=== PATIENT | male | born 1960 | race Caucasian/White ===

== ENCOUNTER 2019-01-12 05:29 | Observation (INO) | payer BC, OTHER ==
[2019-01-12] VITALS (21 sets, daily range): BP systolic 100–167; BP diastolic 62–107
[~2019-01-12] VITALS: Ht 182.9 cm; Wt 106.6 kg
[~2019-01-12 05:29] MED LIST: IRBE75TA31; MULT1CAP27; ONDA4TAB11 PO
--- OUTSIDE RECORDS SUMMARY | 2019-01-12 05:34 | XMS REPORT | Continuity of Care Document ---
Author Organization Unknown Address Unknown Allergies Active Description Code Type Severity Reaction Onset Reported/Identified Relationship to Patient Clinical Status Yes No Known Drug Allergies [id number] Drug Allergy Unknown N/A 12/13/2010 Medications There is no data. Problems There is no data. Procedures There is no data. Results There is no data. Encounters ACCT No. Visit Date/Time Discharge Status Pt. Type Provider Facility Loc./Unit Complaint [id number] 09/23/2012 15:20:06 RECURRING [id number] 03/14/2016 15:41:00 03/14/2016 23:59:59 CLS Outpatient [facility] KIRAN [facility] OCC AUTO ACCIDENT
[2019-01-12] MEDS ORDERED: NITROGLYCERIN 0.4 MG SL TABS BTL 25'S SL ONE (05:37)
[2019-01-12] MEDS ORDERED: ASPIRIN 81 MG CHEW (CHILDREN'S ASA) ONE (05:37)
[2019-01-12] MEDS: NITROGLYCERIN 0.4 MG SL TABS BTL 25'S SL PRN ×3 (05:42→05:52)
[2019-01-12] MEDS ORDERED: ASPIRIN 81 MG CHEW (CHILDREN'S ASA) PO ONE (05:45)
[2019-01-12 05:49] LABS: BASOPHILS % (AUTO) 0 % (0-10); EOSINOPHILS # (AUTO) 0.1 10^3/uL (0.0-0.3); EOSINOPHILS % (AUTO) 1 % (0-10); HEMATOCRIT 42 % (40-54); HEMOGLOBIN 14.6 G/DL (13.3-17.7); LYMPHOCYTES # (AUTO) 1.7 X 10^3 (1.0-4.0); LYMPHOCYTES % (AUTO) 21 % (12-44); MEAN CORPUSCULAR HEMOGLOBIN 31 PG (25-34); MEAN CORPUSCULAR HGB CONC 35 G/DL (32-36); MEAN CORPUSCULAR VOLUME 88 FL (80-99); MEAN PLATELET VOLUME 8.8 FL (7.4-10.4); MONOCYTES # (AUTO) 0.8 X 10^3 (0.0-1.0); MONOCYTES % (AUTO) 10 % (0-12); NEUTROPHILS # (AUTO) 5.5 X 10^3 (1.8-7.8); NEUTROPHILS % (AUTO) 68 % (42-75); PLATELET COUNT 290 10^3/uL (130-400); RED CELL DISTRIBUTION WIDTH 12.9 % (10.0-14.5); WHITE BLOOD COUNT 8.1 10^3/uL (4.3-11.0)
[2019-01-12 05:55] LABS: PROTHROMBIN TIME PATIENT 13.5 SEC (12.2-14.7)
--- NOTE | 2019-01-12 05:56 | NUR ---
AFTER 3 DOSES OF NITRO SL RATES PAIN 3/10, BP 107/86.
[2019-01-12 06:03] LABS: ALANINE AMINOTRANSFERASE 29 U/L (0-55); ALBUMIN 4.6 GM/DL (3.2-4.5); ALKALINE PHOSPHATASE 126 U/L (40-136); BILIRUBIN,TOTAL 0.8 MG/DL (0.1-1.0); BUN/CREATININE RATIO 14; CALCIUM 10.4 MG/DL (8.5-10.1); CARBON DIOXIDE 22 MMOL/L (21-32); CHLORIDE 108 MMOL/L (98-107); CREATININE SERUM 0.91 MG/DL (0.60-1.30); GFR ESTIMATED > 60; GLUCOSE 114 MG/DL (70-105); MAGNESIUM 2.2 MG/DL (1.8-2.4); POTASSIUM 3.7 MMOL/L (3.6-5.0); SODIUM 143 MMOL/L (135-145); TOTAL PROTEIN 7.1 GM/DL (6.4-8.2)
--- NOTE | 2019-01-12 06:22 | ED Chest Pain ---
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 PT STATES HIS BP HAS BEEN ELEVATED RECENTLY AND YESTERDAY WAS ELEVATED ALL DAY AND DEVELOPED HEADACHE, PAIN TO BACK OF NECK AND SHOULDERS, HEARTBURN, NAUSEA, LIGHTHEADEDNESS, AND SOME SOA. PT NOTICED SWELLING TO FEET THIS WEEKEND. DENIES TAKING ASA OR NITRO CUSTOMER OPERATIONS SPECIALIST. Nursing Sepsis Screen: No Definite Risk Source: patient, family Exam Limitations: no limitations History of Present Illness Date Seen by Provider: January 12, 2019 Time Seen by Provider: 05:31 Initial Comments THIS IS A DUPLICATE CHART. SEE DR. BANKS'S CHART FOR COMPLETE DOCUMENTATION FOR THIS ENCOUNTER. This 59-year-old gentleman presents to the emergency room with chest pain that extends from the upper sternal area down to the epigastric region that woke him from sleep about 30 minutes prior to arrival. Patient has been struggling with elevated blood pressure for the past couple of weeks. He has been experiencing associated headaches. On December 2017 he experienced some nausea and vomited. Yesterday his blood pressure was escalating. He had systolic blood pressures in the 170s and 180s. He was experiencing pain up through his neck and across his shoulders. Today the pain radiated from the chest into the left arm and again was across his shoulders and in his neck. He felt shortness of breath and had heartburn associated with it as well. Yesterday he felt lightheaded. He has noted some intermittent swelling in his feet recently. He also reports having some mild shortness of breath and chest discomfort when working in the yard for the past few months. He has a remote history of smoking and quit about 2000. He has family history of coronary artery disease. His father has had a multivessel CABG. Allergies and Home Medications Allergies Coded Allergies: No Known Drug Allergies (Unverified , 12/13/10) Home Medications Amlodipine Besylate 5 Mg Tablet, 5 MG PO DAILY, (Reported) Hydrochlorothiazide 12.5 Mg Capsule, 12.5 MG PO DAILY, (Reported) Losartan Potassium 100 Mg Tablet, 100 MG PO DAILY, (Reported) Multivitamin with Minerals 1 Each Tablet, 1 TAB PO DAILY, (Reported) Patient Home Medication List Home Medication List Reviewed: Yes Review of Systems Review of Systems Constitutional: no symptoms reported EENTM: No Symptoms Reported Respiratory: See HPI Cardiovascular: No Symptoms Reported Gastrointestinal: See HPI Genitourinary: No Symptoms Reported Musculoskeletal: see HPI Skin: no symptoms reported Psychiatric/Neurological: See HPI Endocrine: No Symptoms Reported Hematologic/Lymphatic: No Symptoms Reported Past Ywqmwoy-Buairp-Wkzini Hx Past Med/Social Hx: Reviewed and Corrections made Patient Social History Recent Foreign Travel: No Contact w/Someone Who Travel: No Recent Infectious Disease Expo: No Past Medical History Surgeries: Yes Appendectomy Respiratory: No Cardiac: Yes Hypertension Neurological: No Genitourinary: No Gastrointestinal: No Musculoskeletal: No Endocrine: No HEENT: No Cancer: No Psychosocial: No Integumentary: No Family Medical History Heart Disease Physical Exam Vital Signs Vital Signs - First Documented 01/12/19 01/12/19 05:29 08:38 Temp 98.7 Pulse 77 Resp 20 B/P (MAP) 181/101 (127) Pulse Ox 97 O2 Delivery Room Air Capillary Refill : Less Than 3 Seconds Height, Weight, BMI Height: 6'0" Weight: 235lbs. oz. 106.678635vy; BMI Method:Stated General Appearance: WD/WN, Mild Distress HEENT: PERRL/EOMI, Normal ENT Inspection Neck: Normal Inspection Respiratory: Lungs Clear, Normal Breath Sounds, No Accessory Muscle Use, No Respiratory Distress, Other (anterior central chest mildly tender to palpation) Cardiovascular: Regular Rate, Rhythm, No Edema, No Murmur Gastrointestinal: Normal Bowel Sounds, Non Tender, Soft Extremity: Normal Inspection, Non Tender, No Calf Tenderness, No Pedal Edema, Other (negative Aj) Neurologic/Psychiatric: Alert, Oriented x3, No Motor/Sensory Deficits, Normal Mood/Affect, pulper tender II-XII Norm as Tested Skin: Normal Color, Warm/Dry Progress/Results/Core Measures Results/Orders Lab Results Laboratory Tests Test 01/12/19 05:35 Range/Units White Blood Count 8.1 4.3-11.0 10^3/uL Red Blood Count 4.72 4.35-5.85 10^6/uL Hemoglobin 14.6 13.3-17.7 G/DL Hematocrit 42 40-54 % Mean Corpuscular Volume 88 80-99 FL Mean Corpuscular Hemoglobin 31 25-34 PG Mean Corpuscular Hemoglobin Concent 35 32-36 G/DL Red Cell Distribution Width 12.9 10.0-14.5 % Platelet Count 290 130-400 10^3/uL Mean Platelet Volume 8.8 7.4-10.4 FL Neutrophils (%) (Auto) 68 42-75 % Lymphocytes (%) (Auto) 21 12-44 % Monocytes (%) (Auto) 10 0-12 % Eosinophils (%) (Auto) 1 0-10 % Basophils (%) (Auto) 0 0-10 % Neutrophils # (Auto) 5.5 1.8-7.8 X 10^3 Lymphocytes # (Auto) 1.7 1.0-4.0 X 10^3 Monocytes # (Auto) 0.8 0.0-1.0 X 10^3 Eosinophils # (Auto) 0.1 0.0-0.3 10^3/uL Basophils # (Auto) 0.0 0.0-0.1 10^3/uL Prothrombin Time 13.5 12.2-14.7 SEC INR Comment 1.0 0.8-1.4 Activated Partial Thromboplast Time 34 24-35 SEC Sodium Level 143 135-145 MMOL/L Potassium Level 3.7 3.6-5.0 MMOL/L Chloride Level 108 H 98-107 MMOL/L Carbon Dioxide Level 22 21-32 MMOL/L Anion Gap 13 5-14 MMOL/L Blood Urea Nitrogen 13 7-18 MG/DL Creatinine 0.91 0.60-1.30 MG/DL Estimat Glomerular Filtration Rate > 60 BUN/Creatinine Ratio 14 Glucose Level 114 H 70-105 MG/DL Calcium Level 10.4 H 8.5-10.1 MG/DL Corrected Calcium 8.5-10.1 MG/DL Magnesium Level 2.2 1.8-2.4 MG/DL Total Bilirubin 0.8 0.1-1.0 MG/DL Aspartate Amino Transf (AST/SGOT) 18 5-34 U/L Alanine Aminotransferase (ALT/SGPT) 29 0-55 U/L Alkaline Phosphatase 126 40-136 U/L Myoglobin 40.7 10.0-92.0 NG/ML Troponin I < 0.028 <0.028 NG/ML Total Protein 7.1 6.4-8.2 GM/DL Albumin 4.6 H 3.2-4.5 GM/DL My Orders Ernesto - CHATO BAIG MD Cbc With Automated Diff (01/12/19 05:40) Magnesium (01/12/19 05:40) Chest 1 View, Ap/Pa Only (01/12/19 05:40) Ekg Tracing (01/12/19 05:40) Cardiac Profile 1 (01/12/19 05:40) Comprehensive Metabolic Panel (01/12/19 05:40) Myoglobin Serum (01/12/19 05:40) Protime With Inr (01/12/19 05:40) Partial Thromboplastin Time (01/12/19 05:40) O2 (01/12/19 05:40) Monitor-Rhythm Ecg Trace Only (01/12/19 05:40) Ed Iv/Invasive Line Start (01/12/19 05:40) Nitroglycerin 0.4 Mg Btl 25's (Nitrostat (01/12/19 05:45) Aspirin Chewable Tablet (Baby Aspirin Ch (01/12/19 05:45) Nitroglycerin 0.4 Mg Btl 25's (Nitrostat (01/12/19 05:37) Aspirin Chewable Tablet (Baby Aspirin Ch (01/12/19 05:37) Ct Angio Chest W (01/12/19 06:01) Vital Signs/I&O 01/12/19 01/12/19 01/12/19 01/12/19 05:29 05:29 08:38 10:14 Temp 98.7 Pulse 77 69 71 Resp 20 18 18 B/P (MAP) 181/101 (127) 167/103 (124) 157/94 (115) Pulse Ox 97 95 O2 Delivery Room Air Room Air 01/12/19 11:13 Pulse 66 Resp 18 B/P (MAP) 136/92 (107) Pulse Ox 95 O2 Delivery Room Air Blood Pressure Mean: 127 Progress Progress Note : Time: 06:21 Progress Note Patient was seen and examined upon arrival. EKG was unremarkable. Aspirin and nitroglycerin were administered. After 3 doses of nitroglycerin, blood pressure was significantly improved. Pain decreased from 6/10 down to 3/10. Because of the nature of his pain and progression of pain, CT angiogram was felt appropriate to rule out aortic pathology. CT is pending. Care of this patient is being transferred to Dr. Banks at this time. Bedside checkout was performed. Initial ECG Impression Date: January 12, 2019 Initial ECG Impression Time: 05:30 Initial ECG Rate: 78 Initial ECG Rhythm: Normal Sinus Initial ECG Intervals: Normal Initial ECG Impression: Normal Comment Normal sinus rhythm with no ST elevation or depression. No abnormal intervals or axis deviation. Departure Impression Primary Impression: Chest pain Qualified Codes: R07.9 - Chest pain, unspecified Disposition: ADMITTED INPATIENT Condition: Improved Admissions Decision to Admit Reason: Admit from ER (General) Decision to Admit/Date: January 12, 2019 Time/Decision to Admit Time: 07:56 Departure-Patient Inst. Referrals: DAVI HELLER MD (PCP/Family) Primary Care Physician CHATO BAIG MD January 12, 2019 06:22
--- NOTE | 2019-01-12 06:26 | ED Chest Pain ---
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 PT STATES HIS BP HAS BEEN ELEVATED RECENTLY AND YESTERDAY WAS ELEVATED ALL DAY AND DEVELOPED HEADACHE, PAIN TO BACK OF NECK AND SHOULDERS, HEARTBURN, NAUSEA, LIGHTHEADEDNESS, AND SOME SOA. PT NOTICED SWELLING TO FEET THIS WEEKEND. DENIES TAKING ASA OR NITRO KINDERGARTEN INSTRUCTIONAL ASSISTANT. Nursing Sepsis Screen: No Definite Risk Source: patient Exam Limitations: no limitations History of Present Illness Date Seen by Provider: January 12, 2019 Time Seen by Provider: 05:56 Initial Comments Patient presents the ER from home with chief complaint of chest pain radiating to his neck left greater than right along with an occipital headache and radiating into his left shoulder. He said it was quite short this morning about 6 out of 10 at the worst and improved significantly after 3 doses of nitroglycerin here in the ER. He's noted for the past few weeks that has not felt well had some vomiting and chest pain Thursday 2 days ago so he stayed home from work he had a bug that everybody else in the office had. He has also noticed in the last several months he has become easily winded on exertion with chest discomfort stop and catch his breath. He stopped smoking decades ago. He is not diabetic as not have a history of high cholesterol but does take HCTZ, losartan, amlodipine. He does not have any known history of cardiac disease but has never had any screening. His father has had 5 bypasses and diabetes. Allergies and Home Medications Allergies Coded Allergies: No Known Drug Allergies (Unverified , 12/13/10) Home Medications Ondansetron 4 Mg Tab.rapdis, 4 MG PO Q6H PRN Prescribed by: CONSTANZA MCDANIEL on 12/14/10 0036 Patient Home Medication List Home Medication List Reviewed: Yes Review of Systems Review of Systems Constitutional: No chills, No diaphoresis EENTM: No Blurred Vision, No Double Vision Respiratory: Denies Cough; Shortness of Air Cardiovascular: See HPI, Chest Pain, Edema; Denies Palpitations, Denies Syncope Gastrointestinal: Denies Constipated, Denies Diarrhea, Denies Nausea Genitourinary: Denies Burning, Denies Discharge Musculoskeletal: No back pain, No joint pain Past Fwqeqow-Dobmcr-Rhxrnz Hx Patient Social History Alcohol Use: Occasionally Uses Recreational Drug Use: No Smoking Status: Former Smoker Recent Foreign Travel: No Contact w/Someone Who Travel: No Recent Infectious Disease Expo: No Physical Exam Vital Signs Vital Signs - First Documented 01/12/19 05:29 Temp 98.7 Pulse 77 Resp 20 B/P (MAP) 181/101 (127) O2 Delivery Room Air Capillary Refill : Less Than 3 Seconds Height, Weight, BMI Height: 6'0" Weight: 235lbs. oz. 106.887419dr; BMI Method:Stated General Appearance: WD/WN, Anxious, Mild Distress HEENT: PERRL/EOMI, Pharynx Normal, Moist Mucous Membranes Neck: Normal Inspection, Non Tender Respiratory: Chest Non Tender, Lungs Clear, Normal Breath Sounds, No Accessory Muscle Use, No Respiratory Distress Cardiovascular: Regular Rate, Rhythm, No Edema, Normal Peripheral Pulses Gastrointestinal: Normal Bowel Sounds, Non Tender, Soft Extremity: Normal Capillary Refill, Normal Inspection, No Pedal Edema Neurologic/Psychiatric: Alert, Oriented x3, No Motor/Sensory Deficits Skin: Normal Color, Warm/Dry Progress/Results/Core Measures Results/Orders Lab Results Laboratory Tests Test 01/12/19 05:35 Range/Units White Blood Count 8.1 4.3-11.0 10^3/uL Red Blood Count 4.72 4.35-5.85 10^6/uL Hemoglobin 14.6 13.3-17.7 G/DL Hematocrit 42 40-54 % Mean Corpuscular Volume 88 80-99 FL Mean Corpuscular Hemoglobin 31 25-34 PG Mean Corpuscular Hemoglobin Concent 35 32-36 G/DL Red Cell Distribution Width 12.9 10.0-14.5 % Platelet Count 290 130-400 10^3/uL Mean Platelet Volume 8.8 7.4-10.4 FL Neutrophils (%) (Auto) 68 42-75 % Lymphocytes (%) (Auto) 21 12-44 % Monocytes (%) (Auto) 10 0-12 % Eosinophils (%) (Auto) 1 0-10 % Basophils (%) (Auto) 0 0-10 % Neutrophils # (Auto) 5.5 1.8-7.8 X 10^3 Lymphocytes # (Auto) 1.7 1.0-4.0 X 10^3 Monocytes # (Auto) 0.8 0.0-1.0 X 10^3 Eosinophils # (Auto) 0.1 0.0-0.3 10^3/uL Basophils # (Auto) 0.0 0.0-0.1 10^3/uL Prothrombin Time 13.5 12.2-14.7 SEC INR Comment 1.0 0.8-1.4 Activated Partial Thromboplast Time 34 24-35 SEC Sodium Level 143 135-145 MMOL/L Potassium Level 3.7 3.6-5.0 MMOL/L Chloride Level 108 H 98-107 MMOL/L Carbon Dioxide Level 22 21-32 MMOL/L Anion Gap 13 5-14 MMOL/L Blood Urea Nitrogen 13 7-18 MG/DL Creatinine 0.91 0.60-1.30 MG/DL Estimat Glomerular Filtration Rate > 60 BUN/Creatinine Ratio 14 Glucose Level 114 H 70-105 MG/DL Calcium Level 10.4 H 8.5-10.1 MG/DL Corrected Calcium 8.5-10.1 MG/DL Magnesium Level 2.2 1.8-2.4 MG/DL Total Bilirubin 0.8 0.1-1.0 MG/DL Aspartate Amino Transf (AST/SGOT) 18 5-34 U/L Alanine Aminotransferase (ALT/SGPT) 29 0-55 U/L Alkaline Phosphatase 126 40-136 U/L Myoglobin 40.7 10.0-92.0 NG/ML Troponin I < 0.028 <0.028 NG/ML Total Protein 7.1 6.4-8.2 GM/DL Albumin 4.6 H 3.2-4.5 GM/DL My Orders Orders - DEANNE TABARES Morphine Injection (Morphine Injection (01/12/19 06:40) Ondansetron Injection (Zofran Injectio (01/12/19 06:45) Morphine Injection (Morphine Injection (01/12/19 07:42) Medications Given in ED Current Medications Medications Dose Ordered Sig/Tacho Route Start Time Stop Time Status Last Admin Dose Admin Aspirin 324 mg ONCE ONCE PO 01/12/19 05:45 01/12/19 05:46 DC 01/12/19 05:41 324 MG Nitroglycerin 0.4 mg UD PRN SL 01/12/19 05:45 01/12/19 06:32 DC 01/12/19 05:52 0.4 MG Ondansetron HCl 4 mg ONCE ONCE IVP 01/12/19 06:45 01/12/19 06:46 DC 01/12/19 06:47 4 MG Vital Signs/I&O 01/12/19 01/12/19 05:29 05:29 Temp 98.7 Pulse 77 Resp 20 B/P (MAP) 181/101 (127) O2 Delivery Room Air Blood Pressure Mean: 127 Progress Progress Note : Time: 06:27 Progress Note Patient was received at shift change and previous provider also started the note on the patient. I agree with his documented history. Plan was put in place to get a CT angiogram and pursue possible thoracic aortic aneurysm versus coronary. Patient's symptoms have improved significantly after 3 doses of nitroglycerin. ED ACS 19 weeks. Not low risk. This patient is not a candidate for early discharge and should receive a standard chest pain evaluation with delayed troponin testing. Initial ECG Impression Date: January 12, 2019 Initial ECG Impression Time: 05:30 Initial ECG Rate: 78 Initial ECG Rhythm: Normal Sinus Initial ECG Intervals: Normal Initial ECG Impression: Normal Initial ECG Comparisson: No Previous ECG Available Comment No acute ST elevation or depression. Diagnostic Imaging Diagonstic Imaging: Xray Plain Films/CT/US/NM/MRI: chest (1v) Comments 1 view chest normal cardiac shadow without acute pulmonary process. [facility] [place] NAME: CONSTANZA VASQUEZ [facility] REC#: [id number] PT STATUS: REG ER : 1960 PHYSICIAN: CHATO BAIG MD ADMIT DATE: 01/12/19/ER Draft Date of Exam:01/12/19 CHEST 1 VIEW, AP/PA ONLY INDICATION: Chest pain and blood pressure elevated COMPARISONS: None FINDINGS: Single view of the chest shows normal heart, pleura and diaphragms. There is mild central venous congestion accentuated by the portable technique and low lung volumes. There is a minimal basilar atelectatic infiltrates but no significant consolidations. There is no effusion or pneumothorax. Soft tissues and bony thorax are normal. IMPRESSION: Mild central venous congestion with some minimal basilar atelectatic infiltrates but no consolidations. Dictated on workstation # [id number] Dict: 01/12/19 0654 Trans: 01/12/19 0709 [id number] [id number] Interpreted by: CANDACE LEE MD Electronically signed by: Reviewed: Reviewed by Me Diagonstic Imaging: CT (angiogram) Plain Films/CT/US/NM/MRI: chest Comments NAME: CONSTANZA VASQUEZ [facility] REC#: [id number] PT STATUS: REG ER : 1960 PHYSICIAN: CHATO BAIG MD ADMIT DATE: 01/12/19/ER Draft Date of Exam:01/12/19 CT ANGIO CHEST W PROCEDURE: CT angiography of the chest with contrast. TECHNIQUE: Multiple contiguous axial images were obtained through the chest after uneventful bolus administration of intravenous contrast. 2D reconstructed CTA MIP acquisitions were also performed. Auto Exposure Controls were utilized during the CT exam to meet ALARA standards for radiation dose reduction. INDICATION: Chest pain. FINDINGS: There is good opacification of pulmonary arteries without intraluminal filling defect. Thoracic aorta has a normal appearance. There is no evidence of pathologic adenopathy in the chest. No significant pleural or pericardial fluid is identified. No acute osseous abnormality is identified. IMPRESSION: No CTA evidence of pulmonary embolism or other acute abnormality in the chest. Dictated on workstation # [id number] Dict: 01/12/19 0749 Trans: 01/12/19 0752 [id number] Interpreted by: ARTUR WALKER MD Electronically signed by: Reviewed: Reviewed by Me Departure Communication (Admissions) Time/Spoke to Admitting Phy: 07:50 Discussed the case lab EKG imaging with Dr. Penny and he agrees to accept the patient was on service. Allow the patient eat. Impression Primary Impression: Chest pain Qualified Codes: R07.9 - Chest pain, unspecified Disposition: ADMITTED INPATIENT Condition: Stable Admissions Decision to Admit Reason: Admit from ER (General) Decision to Admit/Date: January 12, 2019 Time/Decision to Admit Time: 07:56 Departure-Patient Inst. Referrals: DAVI HELLER MD (PCP/Family) Primary Care Physician Copy Copies To 1: DAVI HELLER MD, TITUS J January 12, 2019 06:26
[2019-01-12] MEDS ORDERED: morphine INJ 10 MG/ML 1ML (SYR OR VIAL) IVP STA ×2 (06:40→07:42)
[2019-01-12] MEDS ORDERED: ONDANSETRON 4 MG/2 ML (SDV) Z0FRAN IVP ONE (06:45)
--- NOTE | 2019-01-12 07:10 | Diagnostic Imaging Report ---
INDICATION: Chest pain and blood pressure elevated COMPARISONS: None FINDINGS: Single view of the chest shows normal heart, pleura and diaphragms. There is mild central venous congestion accentuated by the portable technique and low lung volumes. There is a minimal basilar atelectatic infiltrates but no significant consolidations. There is no effusion or pneumothorax. Soft tissues and bony thorax are normal. IMPRESSION: Mild central venous congestion with some minimal basilar atelectatic infiltrates but no consolidations. Dictated by: Dictated on workstation # [id number]
--- NOTE | 2019-01-12 07:41 | NUR ---
TO ROOM CON'T TO HAVE PAIN IN CHEST AND NECK RATES AT 2/10 DR NOTIFIED.
--- NOTE | 2019-01-12 07:52 | Diagnostic Imaging Report ---
PROCEDURE: CT angiography of the chest with contrast. TECHNIQUE: Multiple contiguous axial images were obtained through the chest after uneventful bolus administration of intravenous contrast. 2D reconstructed CTA MIP acquisitions were also performed. Auto Exposure Controls were utilized during the CT exam to meet ALARA standards for radiation dose reduction. INDICATION: Chest pain. FINDINGS: There is good opacification of pulmonary arteries without intraluminal filling defect. Thoracic aorta has a normal appearance. There is no evidence of pathologic adenopathy in the chest. No significant pleural or pericardial fluid is identified. No acute osseous abnormality is identified. IMPRESSION: No CTA evidence of pulmonary embolism or other acute abnormality in the chest. Dictated by: Dictated on workstation # [id number]
[2019-01-12] MEDS ORDERED: meTOproloL SUCCINATE 50 MG (TOPROL XL) TAB PO SCH (08:15)
--- NOTE | 2019-01-12 08:15 | NUR ---
MENU GIVEN TO ORDER FOOD.
--- NOTE | 2019-01-12 08:24 | NUR ---
FOOD TRAY ORDERED.
--- NOTE | 2019-01-12 08:35 | NUR ---
PATIENT AND INFORMED THAT WILL BE IN ED FOR AWHILE DUE TO BED SITUATION UPSTAIRS.
--- NOTE | 2019-01-12 08:39 | NUR ---
FOOD TRAY GIVEN
--- NOTE | 2019-01-12 08:44 | NUR ---
DR BAKER HERE TO SEE PATIENT.
--- NOTE | 2019-01-12 09:14 | Cardiology History & Physical ---
HPI-Cardiology Cardiology H&P Date of Admission 01/12/19 Primary Care Physician Monroe Brooke MD Attending Physician Cathryn Charles MD, MA FACP [facility] Consulting Physician MURTAZA CC: Chest discomfort, uncontrolled hypertension HPI: 59 yo man with elevated bp at home for several days. Awoke with chest discomfort at around 4:30 am today: upper mid sternal, sharp, lasting several hours, improved but not completely relieved with s/l NTG in ER, sharp, w/o radiation, w/o associated features, not experienced before (although does have a h/o intermittent heartburn that is relieved with Rolaids). No vomiting or diarrhea or diaphoresis. Does not report shortness of breath. Does not sleep well (chronic). Mild intermittent leg swelling (at the end of the day and resolves overnight). No palp or syncope Review of Systems-Cardiology Review of Systems Constitutional: lightheadedness (intermittent); No weight loss, No weight gain Eyes: No vision change Ears/Nose/Throat: No ear discharge, No nasal drainage, No recent hearing loss Respiratory: As described under HPI Cardiovascular: As described under HPI Gastrointestinal: As described under HPI Genitourinary: No dysuria, No hematuria, No urine frequency changes Musculoskeletal: No back pain, No joint pain Skin: No rash, No ulcerations Psychiatric/Neurological: No seizure, No focal weakness, No syncope Hematologic: No bleeding abnormalities KHE-Nafkrd-Qfloaq Hx Patient Social History Alcohol Use: Occasionally Uses Recreational Drug Use: No Smoking Status: Former Smoker Recent Foreign Travel: No Recent Infectious Disease Expo: No Hospitalization with Isolation: Denies Immunizations Up To Date Date of Influenza Vaccine: Jun 14, 2018 Past Medical History PMH As described under Assessment. Family Medical History Family Medical History: Father has CAD and had CABG in his 70s Allergies and Home Medications Allergies Coded Allergies: No Known Drug Allergies (Unverified , 12/13/10) Home Medications Ondansetron 4 Mg Tab.rapdis, 4 MG PO Q6H PRN Prescribed by: CONSTANZA MCDANIEL on 12/14/10 003 Patient Home Medication List Home Medication List Reviewed: Yes Physical Exam-Cardiology Physical Exam Vital Signs/I&O 01/12/19 01/12/19 01/12/19 05:29 05:29 08:38 Temp 98.7 Pulse 77 69 Resp 20 18 B/P (MAP) 181/101 (127) 167/103 (124) Pulse Ox 97 O2 Delivery Room Air Capillary Refill : Less Than 3 Seconds Constitutional: AAO x 3, well-developed, well-nourished HEENT: EOMI, hearing is well preserved; No xanthelasmas are seen Neck: carotid pulses are 2 + bilaterally, with good upstrokes Respiratory: No accessory muscle use; lungs clear to percussion, lungs clear to auscultation Cardiovascular: regular rate-rhythm, S1 and S2, systolic murmur (faint MARYJANE at card base) Gastrointestinal: No tender; soft; No guarding, No rebound, No audible bowel sounds Extremities: No clubbing, No cyanosis, No significant edema Neurologic/Psychiatric: grossly intact, power is 5/5 both on sides Skin: No rash on exposed areas, No ulcerations on exposed areas Data Review Labs Laboratory Tests 01/12/19 05:35: White Blood Count 8.1, Red Blood Count 4.72, Hemoglobin 14.6, Hematocrit 42, Mean Corpuscular Volume 88, Mean Corpuscular Hemoglobin 31, Mean Corpuscular Hemoglobin Concent 35, Red Cell Distribution Width 12.9, Platelet Count 290, Mean Platelet Volume 8.8, Neutrophils (%) (Auto) 68, Lymphocytes (%) (Auto) 21, Monocytes (%) (Auto) 10, Eosinophils (%) (Auto) 1, Basophils (%) (Auto) 0, Neutrophils # (Auto) 5.5, Lymphocytes # (Auto) 1.7, Monocytes # (Auto) 0.8, Eosinophils # (Auto) 0.1, Basophils # (Auto) 0.0, Prothrombin Time 13.5, INR Comment 1.0, Activated Partial Thromboplast Time 34, Sodium Level 143, Potassium Level 3.7, Chloride Level 108H, Carbon Dioxide Level 22, Anion Gap 13 , Blood Urea Nitrogen 13, Creatinine 0.91, Estimat Glomerular Filtration Rate > 60, BUN/Creatinine Ratio 14, Glucose Level 114H, Calcium Level 10.4H, Corrected Calcium , Magnesium Level 2.2, Total Bilirubin 0.8, Aspartate Amino Transf (AST/ SGOT) 18, Alanine Aminotransferase (ALT/SGPT) 29, Alkaline Phosphatase 126, Myoglobin 40.7, Troponin I < 0.028, Total Protein 7.1, Albumin 4.6H Laboratory Tests 01/12/19 05:35 A/P-Cardiology Assessment/Admission Diagnosis Chest discomfort of undetermined etiology Hypertension Admission Status: Observation Discussion and Recomendations * Control hypertension * Serial card enz and ECG for eval for ACS * If no ACS, then MPI tomorrow * Further recs based on hosp course Clinical Quality Measures AMI/AHF: ASA po Prior to arrival: CATHRYN Berry MD FACP FAC CCDS January 12, 2019 09:14
[2019-01-12] MEDS ORDERED: LOSARTAN 100 MG (COZAAR) TABLET PO ONE (09:15)
[2019-01-12] MEDS ORDERED: HYDROCHLOROTHIAZIDE 12.5 MG (HCTZ) CAP PO ONE (09:15)
[2019-01-12] MEDS ORDERED: amLODIPine 5 MG (NORVASC) TAB PO ONE ×2 (09:15→09:30)
--- NOTE | 2019-01-12 10:18 | NUR ---
CON'T TO WAIT ON ADMIT BED.
[2019-01-12] MEDS ORDERED: LOSA100T57 PO (10:36)
[2019-01-12] MEDS ORDERED: HYDR12.5 PO (10:36)
[2019-01-12] MEDS ORDERED: AMLO5TAB9 PO (10:36)
--- NOTE | 2019-01-12 10:39 | NUR ---
MED RECONCILE TECH HERE.
[2019-01-12] MEDS ORDERED: MULT-406 PO (10:41)
--- NOTE | 2019-01-12 10:42 | NUR ---
WENT OVER THE EXT MED HX WITH THE PATIENT AND HE VERIFIED HOW HE TAKES THEM, HE ALSO STATES HE TAKES A [employer] OTC DAILY.
--- NOTE | 2019-01-12 11:13 | NUR ---
CON'T TO WAIT FOR ROOM
--- NOTE | 2019-01-12 11:25 | NUR ---
1130 TROPONIN DRAWN IN ED
--- OUTSIDE RECORDS SUMMARY | 2019-01-12 11:28 | XMS REPORT | Continuity of Care Document ---
Author Organization Unknown Address Unknown Allergies Active Description Code Type Severity Reaction Onset Reported/Identified Relationship to Patient Clinical Status Yes No Known Drug Allergies [id number] Drug Allergy Unknown N/A 12/13/2010 Medications There is no data. Problems There is no data. Procedures There is no data. Results There is no data. Encounters ACCT No. Visit Date/Time Discharge Status Pt. Type Provider Facility Loc./Unit Complaint [id number] 09/23/2012 15:20:06 RECURRING [id number] 03/14/2016 15:41:00 03/14/2016 23:59:59 CLS Outpatient BG KIRAN [facility] OCC AUTO ACCIDENT
--- NOTE | 2019-01-12 11:37 | NUR ---
SCOTT GIVEN WILL CALL WHEN ROOM CLEAN. INFORMED THAT WILL WILL DRAW 1130 [address] TO CALL HER DR WITH RESULTS.
--- NOTE | 2019-01-12 12:02 | NUR ---
TO ROOM PER W/C
[2019-01-12] MEDS ORDERED: ACETAMINOPHEN 500 MG TAB (TYLENOL) PO PRN (12:30)
[2019-01-12] MEDS ORDERED: NITROGLYCERIN 0.4 MG SL TABS BTL 25'S SL PRN (12:30)
[2019-01-12] MEDS ORDERED: ONDANSETRON 4 MG/2 ML (SDV) Z0FRAN IV PRN (12:30)
[2019-01-12] MEDS ORDERED: morphine INJ 4 MG/ML 1 ML (VIAL/SYRINGE) IV PRN (12:30)
[2019-01-12] MEDS: meTOproloL SUCCINATE 50 MG (TOPROL XL) TAB PO SCH (12:41)
--- NOTE | 2019-01-12 12:45 | NUR ---
CONSTANZA VASQUEZ admitted to room CU2-1, with an admitting diagnosis of chest pain, on 01/12/19 from [place] via wheelchair, accompanied by staff and .CONSTANZA VASQUEZ introduced to surroundings, call light, bed controls, phone, TV, temperature control, lights, meal times, smoking policy, visitor policy, side rail policy, bathrooms and showers. Patient Rights given to patient in the handbook. CONSTANZA VASQUEZ verbalizes understanding that [facility] is not responsible for the loss or damage to any personal effects or valuables that are kept in the patients posession during their hospitalization. The following Patient Care Plans were discussed with the pt: Discharge Planning. CONSTANZA VASQUEZ verbalizes understanding of Interdisciplinary Patient Education. Patient and/or family were informed about the Rapid Response Team and its purpose.
[2019-01-12] MEDS ORDERED: NS IV 1000 ML 1,000 ML IV SCH (14:00)
[2019-01-12] MEDS ORDERED: PANTOPRAZOLE 40 MG (PROTONIX) VIAL IV NR (14:00)
[2019-01-12] MEDS ORDERED: IOHEXOL 350 MG/ML 100 ML (OMNIPAQUE 350) VIAL IV ONE (14:00)
[2019-01-12] MEDS ORDERED: HOLD METFORMIN - RECEIVED CONTRAST 20 ML VIAL IV SCH (14:00)
[2019-01-12] MEDS ORDERED: NS IV 1000 ML 1,000 ML ONE (14:03)
[2019-01-12] MEDS: ANTACID SUSP 30 ML UDC (MYLANTA) PO SCH ×2 (16:43→21:34)
--- NOTE | 2019-01-12 18:26 | Diagnostic Imaging Report ---
PROCEDURE: CT angiography of the head and CT angiography of the neck with and without contrast. TECHNIQUE: Contiguous noncontrast images were obtained from the skull base through the vertex. After intravenous contrast administration, helical CT angiography of the neck was performed. Source data was reformatted into multiple MIP projections. Delayed post contrast acquisition was also obtained. Auto Exposure Controls were utilized during the CT exam to meet ALARA standards for radiation dose reduction. INDICATION: Elevated blood pressure with headaches and dizziness. COMPARISON: No prior studies are available for comparison. FINDINGS: Precontrast portion to the brain demonstrates ventricles and sulci to be within normal limits. No sulcal effacement or midline shift is seen. No acute intra-axial or extra-axial hemorrhage is detected. Cisterns are patent. Visualized paranasal sinuses are clear. The delayed postcontrast images through the brain are without evidence of an abnormal enhancing lesion. CT angiographic portion of the exam demonstrates two-vessel branching pattern to the aortic arch consistent with bovine arch, normal variant. Both common carotid arteries are widely patent. Carotid bifurcations are unremarkable. There is suboptimal opacification of the internal carotid arteries as well as the intracranial vasculature. There does appear to be perfusion to bilateral anterior, middle and posterior cerebral arteries. The basilar artery is patent. The vertebral arteries appear to be codominant and patent. No definite stenosis is seen. IMPRESSION: Limited study due to suboptimal opacification of the intracranial vasculature. No gross abnormality is seen. No carotid stenosis is identified. Dictated by: Dictated on workstation # [id number]
[2019-01-12] MEDS ORDERED: ATORVASTATIN 40 MG (LIPITOR) TABLET PO SCH (21:00)
[2019-01-13] VITALS (19 sets, daily range): BP systolic 89–242; BP diastolic 63–91
[2019-01-13 03:52] LABS: BASOPHILS % (AUTO) 0 % (0-10); EOSINOPHILS # (AUTO) 0.2 10^3/uL (0.0-0.3); EOSINOPHILS % (AUTO) 2 % (0-10); HEMATOCRIT 40 % (40-54); HEMOGLOBIN 13.3 G/DL (13.3-17.7); LYMPHOCYTES # (AUTO) 1.6 X 10^3 (1.0-4.0); LYMPHOCYTES % (AUTO) 20 % (12-44); MEAN CORPUSCULAR HEMOGLOBIN 30 PG (25-34); MEAN CORPUSCULAR HGB CONC 34 G/DL (32-36); MEAN CORPUSCULAR VOLUME 90 FL (80-99); MEAN PLATELET VOLUME 8.7 FL (7.4-10.4); MONOCYTES # (AUTO) 0.7 X 10^3 (0.0-1.0); MONOCYTES % (AUTO) 8 % (0-12); NEUTROPHILS # (AUTO) 5.3 X 10^3 (1.8-7.8); NEUTROPHILS % (AUTO) 69 % (42-75); PLATELET COUNT 266 10^3/uL (130-400); RED CELL DISTRIBUTION WIDTH 13.2 % (10.0-14.5); WHITE BLOOD COUNT 7.7 10^3/uL (4.3-11.0)
[2019-01-13 04:14] LABS: ALANINE AMINOTRANSFERASE 26 U/L (0-55); ALBUMIN 3.9 GM/DL (3.2-4.5); ALKALINE PHOSPHATASE 107 U/L (40-136); BILIRUBIN,TOTAL 0.6 MG/DL (0.1-1.0); BUN/CREATININE RATIO 20; CALCIUM 9.3 MG/DL (8.5-10.1); CARBON DIOXIDE 24 MMOL/L (21-32); CHLORIDE 106 MMOL/L (98-107); CHOLESTEROL 174 MG/DL (< 200); CREATININE SERUM 0.87 MG/DL (0.60-1.30); GFR ESTIMATED > 60; GLUCOSE 105 MG/DL (70-105); HDL CHOLESTEROL 38 MG/DL (40-60); POTASSIUM 3.9 MMOL/L (3.6-5.0); SODIUM 142 MMOL/L (135-145); TOTAL PROTEIN 6.2 GM/DL (6.4-8.2); TRIGLYCERIDES 233 MG/DL (<150); VLDL CHOLESTEROL 47 MG/DL (5-40)
[2019-01-13] MEDS: ANTACID SUSP 30 ML UDC (MYLANTA) PO SCH ×2 (05:40→11:25)
[2019-01-13] MEDS ORDERED: PANTOPRAZOLE 40 MG (PROTONIX) TAB PO SCH (07:00)
[2019-01-13] MEDS ORDERED: CATHETER FLUSH 10 ML SYR IV PRN (07:15)
[2019-01-13] MEDS ORDERED: LOSARTAN 100 MG (COZAAR) TABLET PO SCH (09:00)
[2019-01-13] MEDS ORDERED: ASPIRIN E.C. 81 MG (ECOTRIN) TAB PO SCH (09:00)
[2019-01-13] MEDS ORDERED: HYDROCHLOROTHIAZIDE 12.5 MG (HCTZ) CAP PO SCH (09:00)
[2019-01-13] MEDS ORDERED: amLODIPine 10 MG (NORVASC) TAB PO SCH (09:00)
--- NOTE | 2019-01-13 09:13 | Progress Note-Cardiology ---
Cardiology SOAP Progress Note Subjective: No c/o chest pain this morning. No c/o dyspnea, palpitations, syncope or near syncope. Objective: I&O/Vital Signs 01/13/19 01/13/19 01/13/19 01/13/19 06:57 07:00 08:37 08:46 Pulse 81 75 73 156 Resp 18 22 B/P (MAP) 145/86 (105) 166/91 (116) 226/68 (120) Pulse Ox 99 98 O2 Delivery Room Air Room Air Room Air 01/13/19 01/13/19 01/13/19 01/13/19 08:48 08:49 08:51 08:52 Pulse 126 116 105 102 Resp 22 22 20 20 B/P (MAP) 242/78 (132) 242/78 (132) 187/74 (111) 156/76 (102) Pulse Ox 98 98 98 98 O2 Delivery Room Air Room Air Room Air Room Air 01/13/19 01/13/19 01/13/19 01/13/19 08:53 08:55 09:55 10:00 Pulse 103 96 98 Resp 20 20 B/P (MAP) 148/73 (98) 142/74 (96) 126/85 (99) Pulse Ox 98 98 98 O2 Delivery Room Air Room Air Room Air Room Air 01/13/19 01/13/19 01/13/19 01/13/19 11:00 12:00 13:00 14:00 Pulse 87 82 75 B/P (MAP) 130/80 (97) 122/73 (89) O2 Delivery Room Air Room Air 01/13/19 00:00 Intake Total 475 ml Balance 475 ml Weight (Pounds): 235 Weight (Ounces): 0.0 Weight (Calculated Kilograms): 106.617126 Constitutional: AAO x 3, well-developed, well-nourished Respiratory: No accessory muscle use; lungs clear to percussion, lungs clear to auscultation Cardiovascular: regular rate-rhythm, S1 and S2, systolic murmur (faint MARYJANE at card base) Gastrointestional: No tender; soft; No guarding, No rebound, No audible bowel sounds Extremities: No clubbing, No cyanosis, No significant edema Neurologic/Psychiatric: grossly intact, power is 5/5 both on sides Skin: No rash on exposed areas, No ulcerations on exposed areas Results/Procedures: Labs Laboratory Tests 01/13/19 03:35: White Blood Count 7.7, Red Blood Count 4.39, Hemoglobin 13.3, Hematocrit 40, Mean Corpuscular Volume 90, Mean Corpuscular Hemoglobin 30, Mean Corpuscular Hemoglobin Concent 34, Red Cell Distribution Width 13.2, Platelet Count 266, Mean Platelet Volume 8.7, Neutrophils (%) (Auto) 69, Lymphocytes (%) (Auto) 20, Monocytes (%) (Auto) 8, Eosinophils (%) (Auto) 2, Basophils (%) (Auto) 0, Neutrophils # (Auto) 5.3, Lymphocytes # (Auto) 1.6, Monocytes # (Auto) 0.7, Eosinophils # (Auto) 0.2, Basophils # (Auto) 0.0, Sodium Level 142, Potassium Level 3.9, Chloride Level 106, Carbon Dioxide Level 24, Anion Gap 12, Blood Urea Nitrogen 17, Creatinine 0.87, Estimat Glomerular Filtration Rate > 60, BUN/ Creatinine Ratio 20, Glucose Level 105, Calcium Level 9.3, Corrected Calcium 9.4 , Total Bilirubin 0.6, Aspartate Amino Transf (AST/SGOT) 16, Alanine Aminotransferase (ALT/SGPT) 26, Alkaline Phosphatase 107, Total Protein 6.2L, Albumin 3.9, Triglycerides Level 233H, Cholesterol Level 174, LDL Cholesterol Direct 108, VLDL Cholesterol 47H, HDL Cholesterol 38L, Thyroid Stimulating Hormone (TSH) 2.38 Procedures NAME: CONSTANZA VASQUEZ [facility] REC#: [id number] PT STATUS: ADM Khalif : 1960 PHYSICIAN: BERYL BAKER MD, MA, FACP, FACC, FSCAI, CCDS ADMIT DATE: 01/12/19/ICU Signed Date of Exam: 01/12/19 CT ANGIO HEAD/NECK PROCEDURE: CT angiography of the head and CT angiography of the neck with and without contrast. TECHNIQUE: Contiguous noncontrast images were obtained from the skull base through the vertex. After intravenous contrast administration, helical CT angiography of the neck was performed. Source data was reformatted into multiple MIP projections. Delayed post contrast acquisition was also obtained. Auto Exposure Controls were utilized during the CT exam to meet ALARA standards for radiation dose reduction. INDICATION: Elevated blood pressure with headaches and dizziness. COMPARISON: No prior studies are available for comparison. FINDINGS: Precontrast portion to the brain demonstrates ventricles and sulci to be within normal limits. No sulcal effacement or midline shift is seen. No acute intra-axial or extra-axial hemorrhage is detected. Cisterns are patent. Visualized paranasal sinuses are clear. The delayed postcontrast images through the brain are without evidence of an abnormal enhancing lesion. CT angiographic portion of the exam demonstrates two-vessel branching pattern to the aortic arch consistent with bovine arch, normal variant. Both common carotid arteries are widely patent. Carotid bifurcations are unremarkable. There is suboptimal opacification of the internal carotid arteries as well as the intracranial vasculature. There does appear to be perfusion to bilateral anterior, middle and posterior cerebral arteries. The basilar artery is patent. The vertebral arteries appear to be codominant and patent. No definite stenosis is seen. IMPRESSION: Limited study due to suboptimal opacification of the intracranial vasculature. No gross abnormality is seen. No carotid stenosis is identified. Dictated by: Dictated on workstation # [id number] Dict: 01/12/191812 Trans: 01/12/193 Interpreted by: SUSAN STEWART MD Electronically signed by: SUSAN STEWART MD 01/12/19 [id number] A/P: Assessment: Chest discomfort of undetermined etiology, no evidence of ACS MPI of 01/13/19: no ischemia or infarction, LVEF 69% Echo of 01/12/19: LVEF 60-65%, PASP 30 mmHg Hypertension, now better controlled Probable GERD Plan: * BP improved with addition of anti-hypertensives * No evidence of ACS * MPI this morning - results pending * Further recs based on hosp course Physician Assessment Physician Assessment Some gen weakness and malaise, but no cp or palp or syncope or shortness of breath Lungs: clear Cor: reg Ext: no c/c/e A&R * As documented in our note above that I updated (italics) and as noted below * I had detailed discussion with him and his regarding CV issues and cardiac w/u and results * Focus of management is on risk factor that was discussed * Outpt f/u advised * Empiric treatment with PPI, given suspected GERD for which f/u is recommended with his pcp Clinical Quality Measures AMI/AHF: ASA po Prior to arrival: No BAIMA,ANDREA L MATERIALS DEVELOPMENT ENGINEER January 13, 2019 09:13 BERYL BAKER MD FACP FAC CCDS January 13, 2019 18:16
--- NOTE | 2019-01-13 09:24 | NUR ---
0720 PT TO NUCLEAR MEDICINE VIA W/C ACCOMPANIED BY NUCLEAR MEDICINE STAFF
[2019-01-13] MEDS: meTOproloL SUCCINATE 50 MG (TOPROL XL) TAB PO SCH (09:59)
--- NOTE | 2019-01-13 10:14 | NUR ---
0947 PT BACK TO ROOM ICU 2, ASSESSMENT COMPLETE SEE FLOW SHEET, PT VERBALIZES NO C/O OF PAIN OR NEEDS AT THIS TIME, AT BEDSIDE, CALL LIGHT AND OTHER PERSONAL ITEMS WITHIN REACH WILL CONTINUE TO MONITOR.
--- NOTE | 2019-01-13 13:31 | STRESS TEST ---
DATE OF SERVICE: 01/13/2019 RESTING AND POST EXERCISE TECHNETIUM-99M TETROFOSMIN SPECT CT IMAGING ORDERING PHYSICIAN: Dr. Charles. PRIMARY PHYSICIAN: Dr. Brooke. CLINICAL DIAGNOSIS: Chest discomfort. Baseline images were carried out after injection of 10.8 mCi of technetium-99m Tetrofosmin. This was followed by exercise on a treadmill. Loco protocol was employed. Heart rate response to exercise was normal. Blood pressure response to exercise was hypertensive. Test was stopped on an account of fatigue. He did not report chest discomfort. He attained 106% of maximum predicted heart rate and 12.1 METS of workload. He exercised for a total of 10 minutes and 35 seconds. A 28.7 mCi of technetium-99m Tetrofosmin were injected after he had indicated he would not be able to go more than a minute. The exercise was continued for another minute afterwards. Review of images at rest and following stress does not indicate any significant perfusion defects consistent with significant myocardial ischemia or infarction. Gated images show normal global left ventricular systolic function and normal regional wall motion. Left ventricular ejection fraction is calculated to be 69%. Left ventricular end diastolic volume is 76 mL. TID is absent (0.76). CONCLUSIONS: 1. No evidence of any significant myocardial ischemia or infarction on this study. 2. Normal regional wall motion. 3. Normal global left ventricular systolic function with a calculated ejection fraction of 69%. 4. Hypertensive response to exercise. Job ID: [id number] DocumentID: [id number] Dictated Date: 01/13/2019 12:56:04 Project Manager [employer] Date: 01/13/2019 13:30:50 Dictated By: BERYL CHARLES MD, MA, FACP, FACC,
[2019-01-13] MEDS ORDERED: PANT40TA3 PO (13:55)
[2019-01-13] MEDS ORDERED: AMLO10TA7 PO (13:55)
--- NOTE | 2019-01-13 13:56 | Discharge Inst-Cardiology ---
Discharge Inst-Cardiac Discharge Medications New Medications: Amlodipine Besylate (Amlodipine Besylate) 10 Mg Tablet 10 MG PO DAILY, #30 TAB 5 Refills Pantoprazole Sodium (Pantoprazole Sodium) 40 Mg Tablet.dr 40 MG PO DAILY@0700, #30 TAB 2 Refills Continued Medications: Losartan Potassium (Losartan Potassium) 100 Mg Tablet 100 MG PO DAILY, TAB Multivitamin with Minerals (Men's One Daily) 1 Each Tablet 1 TAB PO DAILY, TAB Discontinued Medications: Amlodipine Besylate (Amlodipine Besylate) 5 Mg Tablet 5 MG PO DAILY, TAB Hydrochlorothiazide (Hydrochlorothiazide) 12.5 Mg Capsule 12.5 MG PO DAILY, CAP New, Converted or Re-Newed RX: Transmitted to Pharmacy Patient Instructions Patient Instructions: Please schedule follow up appointment to see Dr. Charles in 2 weeks ANDRAE BALDWIN January 13, 2019 13:56
--- OUTSIDE RECORDS SUMMARY | 2019-01-13 15:43 | XMS REPORT | Continuity of Care Document ---
Author Organization Unknown Address Unknown Allergies Active Description Code Type Severity Reaction Onset Reported/Identified Relationship to Patient Clinical Status Yes No Known Drug Allergies [id number] Drug Allergy Unknown N/A 12/13/2010 Medications There is no data. Problems There is no data. Procedures There is no data. Results There is no data. Encounters ACCT No. Visit Date/Time Discharge Status Pt. Type Provider Facility Loc./Unit Complaint [id number] 09/23/2012 15:20:06 RECURRING [id number] 03/14/2016 15:41:00 03/14/2016 23:59:59 CLS Outpatient BG KIRAN [facility] OCC AUTO ACCIDENT
== END 2019-01-13 13:55 | disposition home or self-care (01) ==
LOC: EDUNIT# 05:29 → ER 05:31 → UNDOADMOB 11:24 → ICU 11:24 → UNDODISOB 01-13 14:30
PROVIDERS: ADMIT Internal Medicine Cardiovascular Disease; ATTEND Internal Medicine Cardiovascular Disease
DX: R07.9 Chest pain, unspecified (principal); I10 Essential (primary) hypertension; Z87.891 Personal history of nicotine dependence
CPT/HCPCS: 36415; 70496; 70498; 71045; 71275; 78452; 80053; 80061; 83735; 83874; 84443; 84484; 85025; 85610; 85730; 93005; 93017; 93041; 93306

== ENCOUNTER 2019-02-17 13:06 | Outpatient (CLI) | payer OTHER ==
[~2019-02-17 13:06] MED LIST changes: +AMLO10TA7 PO; +AMLO5TAB9 PO; +HYDR12.5 PO; +LOSA100T57 PO; +MULT-406 PO; +PANT40TA3 PO
== END 2019-02-17 13:42 | disposition home or self-care (01) ==
LOC: SLEEP 13:06
PROVIDERS: ATTEND Otolaryngology Otolaryngology/Facial Plastic Surgery
DX: G47.33 Obstructive sleep apnea (adult) (pediatric) (principal); I10 Essential (primary) hypertension; R06.83 Snoring

== ENCOUNTER → 2020-06-19 | Outpatient (CLI) | payer OTHER ==
[~2020-06-19] MED LIST changes: -PANT40TA3 PO; +PANT40TA52 PO
[2020-06-19 10:01] LABS: ALANINE AMINOTRANSFERASE 26 U/L (0-55); ALBUMIN 4.5 GM/DL (3.2-4.5); ALKALINE PHOSPHATASE 114 U/L (40-136); BILIRUBIN,TOTAL 0.9 MG/DL (0.1-1.0); BUN/CREATININE RATIO 16; CALCIUM 9.4 MG/DL (8.5-10.1); CARBON DIOXIDE 24 MMOL/L (21-32); CHLORIDE 107 MMOL/L (98-107); CHOLESTEROL 207 MG/DL (< 200); CREATININE SERUM 0.99 MG/DL (0.60-1.30); GFR ESTIMATED > 60; GLUCOSE 114 MG/DL (70-105); HDL CHOLESTEROL 47 MG/DL (40-60); POTASSIUM 3.8 MMOL/L (3.6-5.0); SODIUM 144 MMOL/L (135-145); TOTAL PROTEIN 7.3 GM/DL (6.4-8.2); TRIGLYCERIDES 226 MG/DL (<150); VLDL CHOLESTEROL 45 MG/DL (5-40)
== END ==
LOC: LAB 09:15
PROVIDERS: ATTEND Internal Medicine Cardiovascular Disease
DX: E78.49 Other hyperlipidemia (principal); G47.39 Other sleep apnea; I10 Essential (primary) hypertension; E66.8 Other obesity
CPT/HCPCS: 36415; 80053; 80061

== ENCOUNTER → 2020-11-15 | Outpatient (CLI) | payer OTHER ==
[~2020-11-15] MED LIST changes: +AMLO-250 PO; +AMLO-251 PO; -AMLO10TA7 PO; -AMLO5TAB9 PO
[2020-11-15 09:40] LABS: ALANINE AMINOTRANSFERASE 27 U/L (0-55); ALBUMIN 4.3 GM/DL (3.2-4.5); ALKALINE PHOSPHATASE 129 U/L (40-136); BILIRUBIN,TOTAL 0.6 MG/DL (0.1-1.0); BUN/CREATININE RATIO 20; CALCIUM 9.1 MG/DL (8.5-10.1); CARBON DIOXIDE 22 MMOL/L (21-32); CHLORIDE 108 MMOL/L (98-107); CHOLESTEROL 194 MG/DL (< 200); CREATININE SERUM 0.89 MG/DL (0.60-1.30); GFR ESTIMATED > 60; GLUCOSE 113 MG/DL (70-105); HDL CHOLESTEROL 49 MG/DL (40-60); MAGNESIUM 2.1 MG/DL (1.6-2.4); POTASSIUM 4.1 MMOL/L (3.6-5.0); SODIUM 141 MMOL/L (135-145); TOTAL PROTEIN 7.1 GM/DL (6.4-8.2); TRIGLYCERIDES 145 MG/DL (<150); VLDL CHOLESTEROL 29 MG/DL (5-40)
== END ==
LOC: LAB 08:54
PROVIDERS: ATTEND Internal Medicine Cardiovascular Disease
DX: I10 Essential (primary) hypertension (principal); E78.5 Hyperlipidemia, unspecified; R73.01 Impaired fasting glucose
CPT/HCPCS: 36415; 80053; 80061; 83735

== ENCOUNTER 2020-12-20 12:04 | Outpatient (CLI) | payer OTHER ==
[~2020-12-20] VITALS: Ht 183 cm; Wt 115.6 kg
[2020-12-20] MEDS ORDERED: DOXA2TAB2 PO (13:07)
[2020-12-20] MEDS ORDERED: MTP100TCR PO (13:07)
[2020-12-20] MEDS ORDERED: TELM1TAB37 PO (13:07)
== END 2020-12-21 07:47 | disposition home or self-care (01) ==
LOC: PREOP 12:04
PROVIDERS: ATTEND Internal Medicine
DX: Z01.818 Encounter for other preprocedural examination (principal); Z12.11 Encounter for screening for malignant neoplasm of colon

== ENCOUNTER 2020-12-28 07:32 | Day surgery (SDC) | payer OTHER ==
--- NOTE | 2020-12-16 09:56 | HISTORY AND PHYSICAL ---
DATE OF SERVICE: COLONOSCOPY HISTORY AND PHYSICAL The patient is a 60-year-old white male referred by Dr. Telles for his first screening colonoscopy. He is deemed to be of average risk as he denies any bowel habit change, melena or bright red blood per rectum, diarrhea or constipation. He is not aware of any family history for colon cancer or inflammatory bowel disease. PAST MEDICAL HISTORY: Significant for hypertension and reflux, which is well controlled on pantoprazole. Denies dysphagia or odynophagia. He had a colonoscopy he believes over [address] Lopez for symptomatic reasons that he believes was unremarkable. He had admission for chest pain, was ruled out. He has serial enzymes 2 years ago as well as nuclear medicine stress testing that was unremarkable per Dr. Charles. Appendectomy in the distant past. MEDICATIONS ON ADMISSION: Include telmisartan HCT 80/25, metoprolol ER 100 mg daily, pantoprazole 40 mg daily, doxazosin 2 mg 3 times per day and Men's 50+ vitamin. FAMILY HISTORY: Dad of lung cancer at the age of 92, was a smoker, also had coronary artery bypass grafting done in his 70s and had long-standing type 2 diabetes. Mother has history of hypertension, breast cancer and skin cancer, at the age of 87. SOCIAL HISTORY: The patient is a retired [employer] with no past smoking history. No significant alcohol history. REVIEW OF SYSTEMS: CONSTITUTIONAL: The patient denies change in weight, night sweats, chills or fever. PULMONARY: The patient denies cough, wheezing or dyspnea on exertion. CARDIOVASCULAR: The patient denies chest pain, orthopnea, PND, pedal edema or dyspnea on exertion. GASTROINTESTINAL: As noted in the HPI. PHYSICAL EXAMINATION: GENERAL: Reveals pleasant overweight white male in no acute distress. VITAL SIGNS: Weight 263 pounds, blood pressure 134/74. HEENT: Unremarkable. Sclerae nonicteric. CHEST: Clear to auscultation. CARDIOVASCULAR: Reveals a regular rate and rhythm without murmur, S3 or S4. ABDOMEN: Soft, supple without mass, organomegaly or tenderness. EXTREMITIES: Reveal no cyanosis, clubbing or edema. ASSESSMENT AND PLAN: The patient was set up for screening colonoscopy. Prep instructions with Suprep kit given and questions were answered. This will be done under Diprivan based anesthesia. Electronic medical record was reviewed. 45 minutes care time spent. I thank you for the referral of this pleasant gentleman. Job ID: [id number] DocumentID: [id number] Dictated Date: 12/05/2020 17:58:41 Farm Management Supervisor Date: 12/05/2020 18:14:50 Dictated By: MARIE LOERA MD MTDD
[~2020-12-28] VITALS: Ht 183 cm; Wt 115.6 kg
[~2020-12-28 07:32] MED LIST changes: +DOXA2TAB2 PO; +LACTATED RINGERS 1,000 ML IV ONE; +MTP100TCR PO; +TELM1TAB37 PO
[2020-12-28] MEDS ORDERED: LACTATED RINGERS 1,000 ML IV STA (07:40)
[2020-12-28] MEDS ORDERED: LIDOCAINE JELLY 2% 6 ML SYRINGE MM PRN (07:45)
[2020-12-28] MEDS ORDERED: PROPOFOL INJECTION 50 ML IV ONE ×2 (07:46→08:45)
[2020-12-28] MEDS ORDERED: MIDAZOLAM 2 MG/2 ML (VERSED) VIAL ONE (07:47)
--- NOTE | 2020-12-28 07:57 | Pre-Op Note & Conscious Sedat ---
Pre-Operative Progress Note H&P Reviewed The H&P was reviewed, patient examined and no changes noted. Date H&P Reviewed: Dec 28, 2020 Time H&P Reviewed: 07:56 Conscious Sedation Pre-Proced ASA Score 2 For ASA 3 and 4: Consider anesthesia and medical clearance. Also, for patients with a history of failed moderate sedation consider anesthesia. Airway Lungs Heart ASA score ASA 1: a normal healthy patient ASA 2: a patient with a mild systemic disease (mid diabetes, controlled hypertension, obesity ASA 3: a patient with a severe systemic disease that limits activity (angina, COPD, prior Myocardial infarction) ASA 4: a patient with an incapacitating disease that is a constant threat to life (CHF, renal failure) ASA 5: a moribund patient not expected to survive 24 hrs. (ruptured aneurysm) ASA 6: a declared brain- patient whose organs are being harvested. For emergent operations, add the letter E after the classification Mallampati Classification Grade 2 Sedation Plan Analgesia, Amnesia, Plan communicated to team members, Discussed options with patient/fam, Discussed risks with patient/fam The patient is an appropriate candidate to undergo the planned procedure, sedation, and anesthesia. The patient immediately re-assessed prior to indication. MARIE LOERA MD Dec 28, 2020 07:57
[2020-12-28 08:03] VITALS: BP 162/82
[2020-12-28] MEDS ORDERED: LIDOCAINE JELLY 2% 6 ML SYRINGE ONE (08:15)
[2020-12-28 09:10] VITALS: BP 139/77
[2020-12-28 09:15] VITALS: BP_SYST 139; BP_SYST 145; BP_DIAS 73; BP_DIAS 74
[2020-12-28 09:36] VITALS: BP 133/82
[2020-12-28 09:37] VITALS: BP 133/82
--- NOTE | 2020-12-28 10:53 | Anesthesia-General Post-Op ---
MAC Patient Condition Mental Status/LOC: Same as Preop Cardiovascular: Satisfactory Nausea/Vomiting: Absent Respiratory: Satisfactory Pain: Controlled Complications: Absent Post Op Complications Complications None Follow Up Care/Instructions Patient Instructions None needed. Anesthesiology Discharge Order Discharge Order Patient is doing well, no complaints, stable vital signs, no apparent adverse anesthesia problems. No complications reported per nursing. LON TAPIA CRNA Dec 28, 2020 10:53
--- NOTE | 2020-12-28 17:03 | OPERATIVE REPORT ---
DATE OF SERVICE: COLONOSCOPY SUMMARY INDICATION FOR THE PROCEDURE: Screening colonoscopy. DESCRIPTION OF PROCEDURE: The patient was placed in the left lateral decubitus position. Prior to undergoing colonoscopy, digital rectal evaluation was performed. Anal sphincter tone was normal and the perianal reflexes intact. Prostate was normal in size, anodular, nontender to digital inspection. No abnormalities were noted on digital inspection of anal canal or distal rectal vault. The colonoscope was then inserted into the rectum and under direct visualization advanced to the cecum. The cecum was identified by identification of ileocecal valve and cecal strap. Photographic documentation was obtained. Quality of prep was only fair. There was still some semi-solid opaque stool fluent noted throughout the colon. FINDINGS: There was no evidence for internal or external hemorrhoids, one diminutive rectal polyp was noted in the mid rectum. It measured 2 to 3 mm in size and was photographed. Moderate diverticular disease was present predominantly noted in the sigmoid colon. In the mid sigmoid colon, was a 1.5 cm pedunculated adenomatous appearing polyp. No ulceration was noted, but there was some inflammatory change noted in the head of the polyp. It was snared and was on a thick stalk. There was more than the usual amount of bleeding noted, so one endoclip was utilized for hemorrhage control. The polyp was retrieved with a basket and submitted. The site was visualized for several minutes and there did not appear to be any evidence for any ongoing bleeding after endoclip deployment. The remainder of the sigmoid colon, descending colon, transverse colon, ascending colon and cecum were unremarkable. ASSESSMENT: One large pedunculated adenomatous appearing polyp was removed via snare, which also required endoclip deployment for post-polypectomy related bleeding as noted above. This was located in the mid sigmoid colon 30 cm from the dentate line. One diminutive polyp was noted in the rectum, which was left to be removed on followup colonoscopy, which will be no longer than 1 year, but timing dependent on histopathology report. The patient also had moderate diverticular disease predominantly in the sigmoid colon without evidence for diverticulitis. The patient was told to abstain from lifting 30 pounds over the next 3 days to take it easy and to avoid aspirin and nonsteroidal medication for at least a week, Tylenol if needed for pain. We discussed the fact that the patient will see blood in the first stool or two that he passes and if this is associated with any significant weakness or large volume, he is to go to the emergency room for further evaluation. I thank you for the referral of this pleasant gentleman. Job ID: [id number] DocumentID: [id number] Dictated Date: 12/28/2020 10:32:21 Finished Goods Planner Date: 12/28/2020 17:02:15 Dictated By: MARIE LOERA MD MTDD
== END 2020-12-28 10:10 | disposition home or self-care (01) ==
LOC: ENDO 07:32
PROVIDERS: ATTEND Internal Medicine
DX: Z12.11 Encounter for screening for malignant neoplasm of colon (principal); D12.5 Benign neoplasm of sigmoid colon; K57.30 Diverticulosis of large intestine without perforation or abscess without bleeding; I10 Essential (primary) hypertension; K21.9 Gastro-esophageal reflux disease without esophagitis; Z79.899 Other long term (current) drug therapy; Z80.1 Family history of malignant neoplasm of trachea, bronchus and lung; Z83.3 Family history of diabetes mellitus; Z80.3 Family history of malignant neoplasm of breast; Z80.8 Family history of malignant neoplasm of other organs or systems
CPT/HCPCS: 88305

== ENCOUNTER → 2021-05-24 | Outpatient (CLI) | payer OTHER ==
[~2021-05-24] MED LIST changes: -LACTATED RINGERS 1,000 ML IV ONE
[2021-05-24 08:50] LABS: ALBUMIN 4.3 GM/DL (3.2-4.5); BILIRUBIN,TOTAL 0.7 MG/DL (0.1-1.0); CALCIUM 9.7 MG/DL (8.5-10.1); CREATININE SERUM 0.96 MG/DL (0.60-1.30); TOTAL PROTEIN 6.9 GM/DL (6.4-8.2)
== END ==
LOC: LAB 07:26
PROVIDERS: ATTEND Nurse Practitioner Family
DX: E78.2 Mixed hyperlipidemia (principal)
CPT/HCPCS: 36415; 80053; 80061

== ENCOUNTER 2021-07-18 05:37 | Outpatient (CLI) | payer OTHER ==
[~2021-07-18] VITALS: Ht 182.9 cm; Wt 115.8 kg
[2021-07-18] MEDS ORDERED: DOXA4TAB2 PO (11:39)
== END 2021-07-18 13:04 | disposition home or self-care (01) ==
LOC: PREOP 05:37
PROVIDERS: ATTEND Internal Medicine
DX: Z01.818 Encounter for other preprocedural examination (principal)

== ENCOUNTER 2021-07-26 07:39 | Day surgery (SDC) | payer OTHER ==
--- NOTE | 2021-07-18 07:56 | HISTORY AND PHYSICAL ---
DATE OF SERVICE: COLONOSCOPY HISTORY AND PHYSICAL DATE OF ADMISSION: 07/26/2021. HISTORY OF PRESENT ILLNESS: The patient is a 61-year-old white male for whom I performed colonoscopy on December 28 of this year. He had a 1.5 cm pedunculated polyp removed via snare from the mid sigmoid colon for which the pathology report revealed a serrated adenoma with a high-grade dysplasia. For this reason, he is returning for early surveillance colonoscopy. He reports no difficulty with colonoscopy. He has had no subsequent abdominal pain, bleeding or change in bowel habit. He reports no significant change in medical history for better blood pressure control. We did increase his doxazosin to 4 mg b.i.d. He has continued to feel well and voicing no complaints. PHYSICAL EXAMINATION: GENERAL: Reveals a white male, appears to be in no acute distress. VITAL SIGNS: Blood pressure 120/70. Weight is down 3 pounds from six months ago to 260. HEENT: Unremarkable. CHEST: Clear. CARDIOVASCULAR: Reveals a regular rate and rhythm without murmur, S3 or S4. ABDOMEN: Soft, supple without mass, organomegaly or tenderness. EXTREMITIES: Reveal no cyanosis, clubbing or edema. ASSESSMENT AND PLAN: The patient is being set up for early surveillance colonoscopy for a serrated adenoma removed via snare for which high-grade dysplasia was noted on histopathology. Location was mid sigmoid colon 30 cm from the anal canal. Prep instructions with the Suprep kit were given and questions were answered. REFERRING PHYSICIAN: Dr. Telles. Thank you for the referral of this pleasant gentleman. Job ID: [id number] DocumentID: [id number] Dictated Date: 07/04/2021 14:59:44 Steel Post Installer Date: 07/04/2021 15:14:45 Dictated By: MARIE LOERA MD
[~2021-07-26] VITALS: Ht 182.9 cm; Wt 115.8 kg
[~2021-07-26 07:39] MED LIST changes: +DOXA4TAB2 PO
--- OUTSIDE RECORDS SUMMARY | 2021-07-26 07:42 | XMS REPORT | CCD ---
Author Author Davide Telles D.O. Organization [facility] Address [address] [place] [address] Phone Care Team Providers Care Smelter Operator Name Role Phone PP Unavailable CCM Unavailable Summary Purpose Interface Exchange Insurance Providers Payer name Policy type / Coverage type Covered green party ID Effective Begin Date Effective End Date ABS FOR [employer] Commercial Insurance [id number] Unknown Family history Mother Diagnosis Age At Onset Hypertension Unknown Atrial fibrillation Unknown COPD Unknown Father Diagnosis Age At Onset Diabetes mellitus Type 2 Unknown Cancer Unknown Coronary Artery Disease(CAD) Unknown sleep apnea Unknown Social History Social History Element Codes Description Effective Dates Marital status Unknown 02/16/2019 Employment Unknown Currently employed [employer] 02/16/[address]: 7151737 Former smoker quit 2001 02/16/2019 Frequency of drinks SNOMED CT: 939291587 1-4 drinks per week 01/2019 Allergies, Adverse Reactions, Alerts Substance Reaction Codes Entered Date Inactivated Date Status DEMEROL reaction Unknown 02/16/2019 No Inactive Date Active * NO KNOWN ENVIRONMENTAL ALLERGIES Unknown 02/16/2019 N o Inactive Date Active * NO KNOWN FOOD ALLERGIES Unknown 11/22/2020 No Inactiv e Date Active Problems Condition Codes Effective Dates Condition Status Essential (primary) hypertension ICD-10: I10 ICD-9: 401.9 02/16/2019 Active Hyperglycemia ICD-10: R73.9 ICD-9: 790.29 11/22/2020 Active Mixed hyperlipidemia ICD-10: E78.2 ICD-9: 272.2 06/17/2021 Active Encounter for general adult medical examination withou t abnormal findings ICD- 10: Z00.00 ICD-9: V70.9 11/22/2020 Active Localized edema ICD-10: R60.0 ICD-9: 782.3 04/25/2019 Active Hypertension Unknown 02/16/2019 Active Other fatigue ICD-10: R53.83 ICD-9: 780.79 02/16/2019 Active Primary insomnia ICD-10: F51.01 ICD-9: 780.52 02/16/2019 Active Medications Medication Codes Instructions Start Date Stop Date Status Fill Instructions telmisartan 80 mg-hydrochlorothiazide 25 mg tablet RxNorm: 4 42436 Take 1 Tablet(s) Oral QAM 07/08/2021 10/05/2021 Active doxazosin 4 mg tablet RxNorm: 887332 1 Tablet(s) Oral two times a day 06/17/2021 No Stop Date Active telmisartan 80 mg-hydrochlorothiazide 25 mg tablet RxNorm: 4 80731 Take 1 Tablet(s) Oral QAM 06/09/2021 06/09/2021 Inactive doxazosin 2 mg tablet RxNorm: 708672 TAKE 3 TABLETS BY MOUTH EVERY NIGHT AT BEDTIME 03/18/2021 06/16/2021 Inactive Micardis HCT 80 mg-25 mg tablet RxNorm: 392887 1 Tablet(s) Oral QAM 12/10/2020 12/10/2020 Inactive Micardis HCT 80 mg-25 mg tablet RxNorm: 673131 TAKE 1 TABLET BY MOUTH EVERY DAY 11/11/2020 12/09/2020 Inactive Micardis HCT 80 mg-25 mg tablet RxNorm: 872316 TAKE 1 TABLET BY MOUTH EVERY DAY 07/13/2020 11/09/2020 Inactive doxazosin 2 mg tablet RxNorm: 406067 TAKE 3 TABLETS BY MOUTH EVERY NIGHT AT BEDTIME 05/04/2020 05/04/2020 Inactive Micardis HCT 80 mg-25 mg tablet RxNorm: 414431 TAKE 1 TABLET BY MOUTH EVERY DAY 04/30/2020 07/12/2020 Inactive metoprolol succinate ER 100 mg tablet,extended release 24 hr RxNorm: 519208 1 Tablet(s) Oral QD 04/18/2020 No Stop Date Active Micardis HCT 80 mg-25 mg tablet RxNorm: 025722 TAKE 1 TABLET BY MOUTH EVERY DAY 04/10/2020 04/29/2020 Inactive Micardis HCT 80 mg-25 mg tablet RxNorm: 975365 TAKE 1 TABLET BY MOUTH EVERY DAY 01/18/2020 04/09/2020 Inactive Micardis HCT 80 mg-25 mg tablet RxNorm: 205563 1 Tablet (s) Oral QAM replaces losartan and HCTZ 10/19/2019 10/18/2019 Inactive Micardis HCT 80 mg-25 mg tablet RxNorm: 567881 TAKE 1 TABLET BY MOUTH EVERY DAY 10/19/2019 01/16/2020 Inactive amlodipine 5 mg tablet RxNorm: 258083 1 Tablet(s) Oral QD 07/20/2019 04/17/2020 Inactive hydrochlorothiazide 25 mg tablet RxNorm: 384155 1 Tablet(s) PO QAM 05/11/2019 07/19/2019 Inactive doxazosin 2 mg tablet RxNorm: 873582 3 Tablet(s) PO QHS 05/11/2019 Inactive losartan 100 mg tablet RxNorm: 076726 TAKE 1 TABLET BY MOUTH EV 04/15/2019 07/19/2019 Inactive trazodone 50 mg tablet RxNorm: 584793 1 TABLET(S) PO QHS NEE DED FOR SLEEP 03/15/2019 04/24/2019 Inactive hydrochlorothiazide 12.5 mg tablet RxNorm: 227244 1 Tablet(s) PO QA M 02/28/2019 05/10/2019 Inactive trazodone 50 mg tablet RxNorm: 116088 1 Tablet(s) PO QHS as nee ded for sleep 02/16/2019 03/14/2019 Inactive Men's Multivitamin 400 mcg-20 mcg-300 mcg tablet RxNorm: 1 Tablet(s) PO QD 02/16/2019 Active pantoprazole 40 mg tablet,delayed release RxNorm: 244922 1 Tabl et(s) PO QD 02/16/2019 Active hydrochlorothiazide 25 mg tablet RxNorm: 329577 1 Tablet(s) PO QAM 05/11/2019 05/10/2019 Inactive doxazosin 2 mg tablet RxNorm: 540826 1 Tablet(s) PO BID 05/11/2019 Inactive losartan 100 mg tablet RxNorm: 425252 1 Tablet(s) PO QD 04/15/2019 Inactive hydrochlorothiazide 12.5 mg tablet RxNorm: 288902 1 Tablet(s) PO QA M 02/28/2019 02/27/2019 Inactive amlodipine 10 mg tablet RxNorm: 700040 1 Tablet(s) PO QD 05/11/2019 0 05/10/2019 Inactive amlodipine 10 mg tablet RxNorm: 513338 1/2 Tablet(s) PO QD 07/20/20 19 07/19/2019 Inactive Medication Administered No Medication Administered data Immunizations Vaccine Codes Date Status Covid-19 CVX: 10/09/2020 Covid-19 CVX: 207 09/11/2020 Results No Results data Procedures No Procedures data Vital Signs Date Vital 06/17/2021 Blood Pressure 1: 154/83 Code: 8480-6 BMI: 35.5 Code: 73095-3 Heart Rate 1: 71 bpm Height: 6' Code: 8302-2 Respiratory Rate: 18 bpm SpO2: 97% Temperature: 36.5 (C) / 97.7 (F) Weight: 262 lbs Code: 48660-4 11/22/2020 Blood Pressure 1: 138/84 Code: 8480-6 BMI: 35.1 Code: 30184-7 Heart Rate 1: 72 bpm Height: 6' Code: 8302-2 Respiratory Rate: 18 bpm SpO2: 97% Temperature: 36.6 (C) / 97.8 (F) Weight: 259 lbs Code: 69437-1 04/18/2020 Blood Pressure 1: 126/74 Code: 8480-6 Heart Rate 1: 80 bpm Respiratory Rate: 20 bpm SpO2: 97% Temperature: 36.4 (C) / 97.5 (F) We ight: 254 lbs Code: 44328-7 07/20/2019 Blood Pressure 1: 146/82 Code: 8480-6 Heart Rate 1: 76 bpm Respiratory Rate: 20 bpm SpO2: 97% Temperature: 36.8 (C) / 98.2 (F) We ight: 245 lbs Code: 09939-1 05/11/2019 Blood Pressure 1: 144/82 Code: 8480-6 Heart Rate 1: 84 bpm Respiratory Rate: 20 bpm SpO2: 98% Temperature: 36.9 (C) / 98.5 (F) We ight: 252 lbs Code: 75469-3 04/25/2019 Blood Pressure 1: 132/78 Code: 8480-6 Heart Rate 1: 92 bpm Respiratory Rate: 20 bpm SpO2: 97% Temperature: 37.0 (C) / 98.6 (F) We ight: 248 lbs Code: 27781-7 02/16/2019 Blood Pressure 1: 142/84 Code: 8480-6 BMI: 33.9 Code: 16969-8 Heart Rate 1: 88 bpm Height: 6' Code: 8302-2 Respiratory Rate: 20 bpm SpO2: 97% Temperature: 37.0 (C) / 98.6 (F) Weight: 250 lbs Code: 87831-4 Functional Status No Functional Status data Reason For Visit Reason For Visit Effective Dates Notes follow up 06/17/2021 well man exam (40-65 years) 11/22/2020 follow up 04/18/2020 follow up 07/20/2019 follow up 05/11/2019 follow up 04/25/2019 2mo fwup ~generic 02/16/2019 New Patient---establ ishing visit Encounters Encounter Performer Location Codes Date () OFFICE/OUTPATIENT VISIT EST Diagnosis: Essential (primary) hypertension[ICD10: I10] Diagnosis: Hyperglycemia[ICD10: R73.9] Diagnosis: Mixed hyperlipidemia[ICD10: E78.2] Anna Marie VALDEZ [facility] CPT-4: 62663 06/17/2021 ([id number]) PREV VISIT EST AGE 40-64 Diagnosis: Encounter for general adult medical examination without abnormal findings[ICD10: Z00.00] Diagnosis: Essential (primary) hypertension[ICD10: I10] Diagnosis: Hyperglycemia[ICD10: R73.9] Gerardo CARRILLO SEric [place] [employer] CPT-4: 06446 11/22/2020 ([id number]) OFFICE/OUTPATIENT VISIT EST Diagnosis: Essential (primary) hypertension[ICD10: I10] Diagnosis: Localized edema[ICD10: R60.0] Gerardo CARRILLO [employer] CPT-4: 37817 04/18/2020 ([id number]) OFFICE/OUTPATIENT VISIT EST Diagnosis: Essential (primary) hypertension[ICD10: I10] Diagnosis: Localized edema[ICD10: R60.0] Gerardo Valentin [employer] CPT-4: 60249 07/20/2019 ([id number]) OFFICE/OUTPATIENT VISIT EST Diagnosis: Essential (primary) hypertension[ICD10: I10] Diagnosis: Localized edema[ICD10: R60.0] Gerardo TELLES [employer] CPT-4: 82892 05/11/2019 ([id number]) OFFICE/OUTPATIENT VISIT EST Diagnosis: Essential (primary) hypertension[ICD10: I10] Diagnosis: Localized edema[ICD10: R60.0] Gerardo TELLES DO [employer] CPT-4: 03791 04/25/2019 ([id number]) OFFICE/OUTPATIENT VISIT NEW Diagnosis: Essential (primary) hypertension[ICD10: I10] Diagnosis: Other fatigue[ICD10: R53.83] Diagnosis: Primary insomnia[ICD10: F51.01] Gerardo TELLES [employer] CPT-4: 48222 02/16/2019 Plan of Care Planned Activity Notes Codes Status Date Visit Diagnosis Plan: Mixed hyperlipidemia Discussion: Mediterranean diet Combination cardio and weight bearing exercise. Recommend starting Cholestoff Pro and recheck lipids in 6 months. ICD-9 : 272.2 ICD-10 : E78.2 06/17/2021 Visit Diagnosis Plan: Essential (primary) hypertension Discussion: BP elevated today-patient states he feels like his BP is up d/t excessive sodium last night. His doxazosin was recently increased by Dr. Charles. Recommend f/u in clinic to recheck BP in the next few weeks. Routine f/u in 3 months. Follow Up: 3 months ICD-9 : 401.9 ICD-10 : I10 06/17/2021 Visit Diagnosis Plan: Hyperglycemia Discussion: Fastin g glucose elevated, will check A1C with next lab draw. ICD-9 : 790.29 ICD-10 : R73.9 06/17/2021 Appointment: Anna Marie Nogueira WPtel: [phone] [facility] FOLLOW UP 06/17/2021 Patient Education: Patient Medication Summary Completed 06/17/2021 Patient Education: doxazosin- OptimizeRX Coupon [phone] https://www.[email or web address]/samplemd/resources/getResource/61/[email or web address] Completed 06/17/2021 Patient Education: High Blood Pressure Co mpleted 06/17/2021 Visit Diagnosis Plan: Essential (primary) hypertension Discussion: Stable Saw cardiology recently ICD-9 : 401.9 ICD-10 : I10 11/22/2020 Visit Diagnosis Plan: Encounter for [facility] adult medical examination without abnormal findings Discussion: Mediterranean diet Combinati on of cardio and weight bearing exercise Lab discussed Had both COVID vaccines Due for updated colonoscopy ICD-9 : V70.9 ICD-10 : Z00.00 11/22/2020 Visit Diagnosis Plan: Hyperglycemia Discussion: Lifest yle change and check CMP, Lipids and HbA1C in 6mos ICD-9 : 790.29 ICD-10 : R73.9 11/22/2020 Appointment: Gerardo Telles WPtel: [facility] [place] [facility] bring [facility] Annual Well Vis it 11/22/2020 Care Plan: Referral Order SNOMED-CT : 30 1871979 Pending 11/22/2020 Appointment: Gerardo Telles WPtel: [facility] [facility] to call with insurance RESCHEDULED 2020 Visit Diagnosis Plan: Localized edema Discussion: Impr carmen with DC of amlodopine ICD-9 : 782.3 ICD-10 : R60.0 04/18/2020 Visit Diagnosis Plan: Essential (primary) hypertension Discussion: Stable Follow Up: 6 months ICD-9 : 401.9 ICD-10 : I10 04/18/2020 Appointment: Gerardo Telles WPtel: [facility] [place] FOLLOW UP 04/18/2020 Visit Diagnosis Plan: Essential (primary) hypertension Discussion: Change losartan and HCTZ to Micardis Hct 8/25mg q AM with next refill Monitor home BPs BP check in 1 month Recheck 6mos Had flu shot at work ICD-9 : 401.9 ICD-10 : I10 07/20/2019 Visit Diagnosis Plan: Localized edema Discussion: Impr carmen with lower dose of amlodopine ICD-9 : 782.3 ICD-10 : R60.0 07/20/2019 Appointment: Gerardo Telles WPtel: [address] [place], [place] [id number] FOLLOW UP 07/20/2019 Patient Education: Micardprince HCT- OptimizeRX Coupon [phone] https://www.[email or web address]/resources/getResource/61/[email or web address] Completed 07/20/2019 Visit Diagnosis Plan: Essential (primary) hypertension Discussion: Increase cardura to 6mg po q HS Continue lower dose of amlodopine and increased dose of HCTZ Monitor home BP readings ICD-9 : 401.9 ICD-10 : I10 05/11/2019 Appointment: Gerardo Telles WPtel: [facility] [place] [phone] [place] FOLLOW UP 05/11/2019 Patient Education: doxazosin- OptimizeRX Coupon [phone] https://www.[employer]/thereNow/resources/getResource/61/[email or web address] Completed 05/11/2019 Patient Education: hydrochlorothiazide- OptimizeRX Cou naeem [id number] https://www.[employer]/thereNow/resources/getResource/61/[email or web address] Completed 05/11/2019 Visit Diagnosis Plan: Localized edema Discussion: Decr ease amlodopine to 5mg daily Increase HCTZ to 25mg po q AM BP check in 2 weeks with home BP monitor May need to go to [facility] and potassium ICD-9 : 782.3 ICD-10 : R60.0 04/25/2019 Visit Diagnosis Plan: Essential (primary) hypertension Discussion: Increase HCTZ to 25mg po q AM Low Na Diet ICD-9 : 401.9 ICD-10 : I10 04/25/2019 Appointment: Gerardo Telles WPtel: [facility] [facility] FOLLOW UP 04/25/2019 Visit Diagnosis Plan: Other fatigue Discussion: Discus sed likely from [facility]S ICD-9 : 780.79 ICD-10 : R53.83 02/16/2019 Visit Diagnosis Plan: Primary insomnia Discussion: Tra zadone trial for sleep study night and to use as acclimates to CPAP Recheck 2mos ICD-9 : 780.52 ICD-10 : F51.01 02/16/2019 Visit Diagnosis Plan: Essential (primary) hypertension Discussion: Continue current meds Has sleep study scheduled for 2 days ICD-9 : 401.9 ICD-10 : I10 02/16/2019 Appointment: Gerardo Telles WPtel: [phone] NEW PATIENT 02/16/2019 Patient Education: trazodone- OptimizeRX Abran [phone] [email or web address].[email or web address]/resources/getResource/61/[email or web address] Completed 02/16/2019 Referral: Jose G Ferrara WPtel: [address] Referral Appointment Requested Instructions No Instructions Medical Equipment No Medical Equipment data Health Concerns Section Health Concerns data not found Goals Section Goals data not found Interventions Section Interventions data not found Health Status Evaluations/Outcomes Section Health Status Evaluations/Outcomes data not found Advance Directives No Advance Directive data
--- OUTSIDE RECORDS SUMMARY | 2021-07-26 07:42 | XMS REPORT | CCD ---
Author Author aDvide Telles D.O. Organization GERARDO TELLES DO [facility] Address [address] [place] [address] Phone Care Team Providers Care Women Designer Name Role Phone PP Unavailable CCM Unavailable Summary Purpose Interface Exchange Insurance Providers Payer name Policy type / Coverage type Covered constitution party ID Effective Begin Date Effective End Date ABS FOR [employer] Commercial Insurance [id number] Unknown Family history Mother Diagnosis Age At Onset Hypertension Unknown Atrial fibrillation Unknown COPD Unknown Father Diagnosis Age At Onset Diabetes mellitus Type 2 Unknown Cancer Unknown Coronary Artery Disease(CAD) Unknown sleep apnea Unknown Social History Social History Element Codes Description Effective Dates Marital status Unknown 02/16/2019 Employment Unknown Currently employed [employer] 02/16/[address]: 2746938 Former smoker quit 2001 02/16/2019 Frequency of drinks SNOMED CT: 580501417 1-4 drinks per week 01/2019 Allergies, Adverse [...] Start Date Stop Date Status Fill Instructions doxazosin 4 mg tablet RxNorm: 260053 1 Tablet(s) Oral two times a day 06/17/2021 No Stop Date Active telmisartan 80 mg-hydrochlorothiazide 25 mg tablet RxNorm: 4 11148 Take 1 Tablet(s) Oral QAM 06/09/2021 07/08/2021 Active doxazosin 2 mg tablet RxNorm: 704499 TAKE 3 TABLETS BY MOUTH EVERY NIGHT AT BEDTIME 03/18/2021 06/16/2021 Inactive Micardis HCT 80 mg-25 mg tablet RxNorm: 311605 1 Tablet(s) Oral QAM 12/10/2020 12/10/2020 Inactive Micardis HCT 80 mg-25 mg tablet RxNorm: 353616 TAKE 1 TABLET BY MOUTH EVERY DAY 11/11/2020 12/09/2020 Inactive Micardis HCT 80 mg-25 mg tablet RxNorm: 802666 TAKE 1 TABLET BY MOUTH EVERY DAY 07/13/2020 11/09/2020 Inactive doxazosin 2 mg tablet RxNorm: 747994 TAKE 3 TABLETS BY MOUTH EVERY NIGHT AT BEDTIME 05/04/2020 05/04/2020 Inactive Micardis HCT 80 mg-25 mg tablet RxNorm: 572618 TAKE 1 TABLET BY MOUTH EVERY DAY 04/30/2020 07/12/2020 Inactive metoprolol succinate ER 100 mg tablet,extended release 24 hr RxNorm: 065039 1 Tablet(s) Oral QD 04/18/2020 No Stop Date Active Micardis HCT 80 mg-25 mg tablet RxNorm: 644265 TAKE 1 TABLET BY MOUTH EVERY DAY 04/10/2020 04/29/2020 Inactive Micardis HCT 80 mg-25 mg tablet RxNorm: 217660 TAKE 1 TABLET BY MOUTH EVERY DAY 01/18/2020 04/09/2020 Inactive Micardis HCT 80 mg-25 mg tablet RxNorm: 750531 1 Tablet (s) Oral QAM replaces losartan and HCTZ 10/19/2019 10/18/2019 Inactive Micardis HCT 80 mg-25 mg tablet RxNorm: 477830 TAKE 1 TABLET BY MOUTH EVERY DAY 10/19/2019 01/16/2020 Inactive amlodipine 5 mg tablet RxNorm: 751638 1 Tablet(s) Oral QD 07/20/2019 04/17/2020 Inactive hydrochlorothiazide 25 mg tablet RxNorm: 274948 1 Tablet(s) PO QAM 05/11/2019 07/19/2019 Inactive doxazosin 2 mg tablet RxNorm: 433336 3 Tablet(s) PO QHS 05/11/2019 Inactive losartan 100 mg tablet RxNorm: 792289 TAKE 1 TABLET BY MOUTH EV 04/15/2019 07/19/2019 Inactive trazodone 50 mg tablet RxNorm: 391302 1 TABLET(S) PO QHS NEE DED FOR SLEEP 03/15/2019 04/24/2019 Inactive hydrochlorothiazide 12.5 mg tablet RxNorm: 978651 1 Tablet(s) PO QA M 02/28/2019 05/10/2019 Inactive trazodone 50 mg tablet RxNorm: 349893 1 Tablet(s) PO QHS as nee ded for sleep 02/16/2019 03/14/2019 Inactive Men's Multivitamin 400 mcg-20 mcg-300 mcg tablet RxNorm: 1 Tablet(s) PO QD 02/16/2019 Active pantoprazole 40 mg tablet,delayed release RxNorm: 831923 1 Tabl et(s) PO QD 02/16/2019 Active hydrochlorothiazide 25 mg tablet RxNorm: 738233 1 Tablet(s) PO QAM 05/11/2019 05/10/2019 Inactive doxazosin 2 mg tablet RxNorm: 804791 1 Tablet(s) PO BID 05/11/2019 Inactive losartan 100 mg tablet RxNorm: 996108 1 Tablet(s) PO QD 04/15/2019 Inactive hydrochlorothiazide 12.5 mg tablet RxNorm: 871278 1 Tablet(s) PO QA M 02/28/2019 02/27/2019 Inactive amlodipine 10 mg tablet RxNorm: 590979 1 Tablet(s) PO QD 05/11/2019 0 05/10/2019 Inactive amlodipine 10 mg tablet RxNorm: 358258 1/2 Tablet(s) PO QD 07/20/20 19 07/19/2019 Inactive Medication Administered No Medication Administered data Immunizations Vaccine Codes Date Status Covid-19 CVX: 207 10/09/2020 Covid-19 CVX: 207 09/11/2020 Results No Results data Procedures No Procedures data Vital Signs Date Vital 06/17/2021 Blood Pressure 1: 154/83 Code: 8480-6 BMI: 35.5 Code: 68453-2 Heart Rate 1: 71 bpm Height: 6' Code: 8302-2 Respiratory Rate: 18 bpm SpO2: 97% Temperature: 36.5 (C) / 97.7 (F) Weight: 262 lbs Code: 30812-7 11/22/2020 Blood Pressure 1: 138/84 Code: 8480-6 BMI: 35.1 Code: 63653-9 Heart Rate 1: 72 bpm Height: 6' Code: 8302-2 Respiratory Rate: 18 bpm SpO2: 97% Temperature: 36.6 (C) / 97.8 (F) Weight: 259 lbs Code: 63524-1 04/18/2020 Blood Pressure 1: 126/74 Code: 8480-6 Heart Rate 1: 80 bpm Respiratory Rate: 20 bpm SpO2: 97% Temperature: 36.4 (C) / 97.5 (F) We ight: 254 lbs Code: 83377-2 07/20/2019 Blood Pressure 1: 146/82 Code: 8480-6 Heart Rate 1: 76 bpm Respiratory Rate: 20 bpm SpO2: 97% Temperature: 36.8 (C) / 98.2 (F) We ight: 245 lbs Code: 24040-0 05/11/2019 Blood Pressure 1: 144/82 Code: 8480-6 Heart Rate 1: 84 bpm Respiratory Rate: 20 bpm SpO2: 98% Temperature: 36.9 (C) / 98.5 (F) We ight: 252 lbs Code: 60400-0 04/25/2019 Blood Pressure 1: 132/78 Code: 8480-6 Heart Rate 1: 92 bpm Respiratory Rate: 20 bpm SpO2: 97% Temperature: 37.0 (C) / 98.6 (F) We ight: 248 lbs Code: 89782-8 02/16/2019 Blood Pressure 1: 142/84 Code: 8480-6 BMI: 33.9 Code: 01879-3 Heart Rate 1: 88 bpm Height: 6' Code: 8302-2 Respiratory Rate: 20 bpm SpO2: 97% Temperature: 37.0 (C) / 98.6 (F) Weight: 250 lbs Code: 39923-9 Functional Status No Functional Status data Reason For Visit Reason For Visit Effective Dates Notes follow up 06/17/2021 well man exam (40-65 years) 11/22/2020 follow up 04/18/2020 follow up 07/20/2019 follow up 05/11/2019 follow up 04/25/2019 2mo fwup ~generic 02/16/2019 New Patient---establ ishing visit Encounters Encounter Performer Location Codes Date (67282) OFFICE/OUTPATIENT VISIT EST Diagnosis: Essential (primary) hypertension[ICD10: I10] Diagnosis: Hyperglycemia[ICD10: R73.9] Diagnosis: Mixed hyperlipidemia[ICD10: E78.2] Anna Marie Valentin [employer] CPT-4: 17794 06/17/2021 ([id number]) PREV VISIT EST AGE 40-64 Diagnosis: Encounter for general adult medical examination without abnormal findings[ICD10: Z00.00] Diagnosis: Essential (primary) hypertension[ICD10: I10] Diagnosis: Hyperglycemia[ICD10: R73.9] Gerardo ORLANDO [employer] CPT-4: 92076 11/22/2020 ([id number]) OFFICE/OUTPATIENT VISIT EST Diagnosis: Essential (primary) hypertension[ICD10: I10] Diagnosis: Localized edema[ICD10: R60.0] Gerardo Valentin [employer] CPT-4: 41752 04/18/2020 ([id number]) OFFICE/OUTPATIENT VISIT EST Diagnosis: Essential (primary) hypertension[ICD10: I10] Diagnosis: Localized edema[ICD10: R60.0] Gerardo Valentin [employer] CPT-4: 96715 07/20/2019 ([id number]) OFFICE/OUTPATIENT VISIT EST Diagnosis: Essential (primary) hypertension[ICD10: I10] Diagnosis: Localized edema[ICD10: R60.0] Gerardo TELLES [employer] CPT-4: 24109 05/11/2019 (76930) OFFICE/OUTPATIENT VISIT EST Diagnosis: Essential (primary) hypertension[ICD10: I10] Diagnosis: Localized edema[ICD10: R60.0] Gerardo TELLES [employer] CPT-4: 25714 04/25/2019 (96821) OFFICE/OUTPATIENT VISIT NEW Diagnosis: Essential (primary) hypertension[ICD10: I10] Diagnosis: Other fatigue[ICD10: R53.83] Diagnosis: Primary insomnia[ICD10: F51.01] Gerardo TELLES [employer] CPT-4: 91382 02/16/2019 Plan of Care Planned Activity Notes [...] Appointment: Anna Marie Nogueira [facility] [phone] [id number] FO[facility] UP 06/17/2021 Patient Education: Patient Medication Summary Completed 06/17/2021 Patient Education: doxazosin- OptimizeRX Coupon [id number] https://www.[employer]/samplemd/resources/getResource/61/7u8b1fn7-5q8a-104f-8m Completed 06/17/2021 Patient Education: High Blood Pressure Co mpleted 06/17/2021 Visit Diagnosis Plan: Essential (primary) hypertension Discussion: Stable Saw cardiology recently ICD-9 : 401.9 ICD-10 : I10 11/22/2020 Visit Diagnosis Plan: Encounter for gene [facility] adult medical examination without abnormal findings Discussion: Mediterranean diet Combinati on of cardio and weight bearing exercise Lab discussed Had both COVID vaccines Due for updated colonoscopy ICD-9 : V70.9 ICD-10 : Z00.00 11/22/2020 Visit Diagnosis Plan: Hyperglycemia Discussion: Lifest yle change and check CMP, Lipids and HbA1C in 6mos ICD-9 : 790.29 ICD-10 : R73.9 11/22/2020 Appointment: Gerardo Telles WPtel: [address] [place], [place] [phone] [place] will bring new insurance to app Annual Well Vis it 11/22/2020 Care Plan: Referral Order SNOMED-CT : 30 [id number] Pending 11/22/2020 Appointment: Gerardo Telles WPtel: [address] [place], [place] [phone] [place] to call with insurance RESCHEDULED 2020 Visit Diagnosis Plan: Localized edema Discussion: Impr carmen with DC of amlodopine ICD-9 : 782.3 ICD-10 : R60.0 04/18/2020 Visit Diagnosis Plan: Essential (primary) hypertension Discussion: Stable Follow Up: 6 months ICD-9 : 401.9 ICD-10 : I10 04/18/2020 Appointment: Gerardo Telles WPtel: [address] [place], [place] [phone] [place] FOLLOW UP 04/18/2020 Visit Diagnosis Plan: [...] : R60.0 07/20/2019 Appointment: Gerardo Telles WPtel: [address] [place], [place] [phone] [place] FOLLOW UP 07/20/2019 Patient Education: Micardis HCT- OptimizeRX Coupon [phone] https://www.[employer]/samplePovio/resources/getResource/61/4cr80860-56n1-2gc8-1q Completed 07/20/2019 Visit Diagnosis Plan: Essential (primary) hypertension Discussion: Increase cardura to 6mg po q HS Continue lower dose of amlodopine and increased dose of HCTZ Monitor home BP readings ICD-9 : 401.9 ICD-10 : I10 05/11/2019 Appointment: Gerardo Telles [facility]Ptel[facility] [phone] [id number] [facility] UP 05/11/2019 Patient Education: doxazosin- OptimizeRX Coupon [id number] https://www.[employer]/Proxly/resources/getResource/61/650z0923-78y6-9bl2-0q Completed 05/11/2019 Patient Education: hydrochlorothiazide- OptimizeRX Cou naeem [id number] https://www.[employer]/samplemd/resources/getResource/61/93566j2u-v410-61n3-27 Completed 05/11/2019 Visit Diagnosis Plan: Localized edema [...] : I10 04/25/2019 Appointment: Gerardo Telles WPtel: [phone] [id number] [facility] FOLLOW UP 04/25/2019 Visit Diagnosis Plan: [...] : I10 02/16/2019 Appointment: Gerardo Telles WPtel: [address] NEW PATIENT 02/16/2019 Patient Education: trazodone- OptimizeRX Coupon [id number] [id number] https://www.[employer].PluggedIn/samplemd/resources/getResource/61/78a8t847-b171-11e6-z6 Completed 02/16/2019 Referral: Jose G Ferrara WPtel: [address] Referral Appointment Requested Instructions No Instructions Medical Equipment No Medical Equipment data Health Concerns Section Health Concerns data not found Goals Section Goals data not found Interventions Section Interventions data not found Health Status Evaluations/Outcomes Section Health Status Evaluations/Outcomes data not found Advance Directives No Advance Directive data
--- OUTSIDE RECORDS SUMMARY | 2021-07-26 07:43 | XMS REPORT | CCD ---
Author Author Davide Telles D.O. Organization GERARDO TELLES DO [facility] Address [address] [place] [address] Phone Care Team Providers Care Dam Tender Name Role Phone PP Unavailable CCM Unavailable Summary Purpose Interface Exchange Insurance Providers Payer name Policy type / Coverage type Covered constitution party ID Effective Begin Date Effective End Date ABS FOR [id number] Commercial Insurance [id number] Unknown Family history Mother Diagnosis Age At Onset Hypertension Unknown Atrial fibrillation Unknown COPD Unknown Father Diagnosis Age At Onset Diabetes mellitus Type 2 Unknown Cancer Unknown Coronary Artery Disease(CAD) Unknown sleep apnea Unknown Social History Social History Element Codes Description Effective Dates Marital status Unknown 02/16/2019 Employment Unknown Currently employed [employer] 02/16/[address]: 3441742 Former smoker quit 2001 02/16/2019 Frequency of drinks SNOMED CT: 572157899 1-4 drinks per week 01/2019 Allergies, Adverse Reactions, Alerts Substance Reaction Codes Entered Date Inactivated Date Status DEMEROL reaction Unknown 02/16/2019 No Inactive Date Active * NO KNOWN ENVIRONMENTAL ALLERGIES Unknown 02/16/2019 N o Inactive Date Active * NO KNOWN FOOD ALLERGIES Unknown 11/22/2020 No Inactiv e Date Active Problems Condition Codes Effective Dates Condition Status Encounter for general adult medical examination withou t abnormal findings ICD- 10: Z00.00 ICD-9: V70.9 11/22/2020 Active Essential (primary) hypertension ICD-10: I10 ICD-9: 401.9 02/16/2019 Active Hyperglycemia ICD-10: R73.9 ICD-9: 790.29 11/22/2020 Active Localized edema ICD-10: R60.0 ICD-9: 782.3 04/25/2019 Active Hypertension Unknown 02/16/2019 Active Other fatigue ICD-10: R53.83 ICD-9: 780.79 02/16/2019 Active Primary insomnia ICD-10: F51.01 ICD-9: 780.52 02/16/2019 Active Medications Medication Codes Instructions Start Date Stop Date Status Fill Instructions telmisartan 80 mg-hydrochlorothiazide 25 mg tablet RxNorm: 4 11712 Take 1 Tablet(s) Oral QAM 06/09/2021 07/08/2021 Active doxazosin 2 mg tablet RxNorm: 620960 TAKE 3 TABLETS BY MOUTH EVERY NIGHT AT BEDTIME 03/18/2021 06/15/2021 Active Micardis HCT 80 mg-25 mg tablet RxNorm: 520775 1 Tablet(s) Oral QAM 12/10/2020 12/10/2020 Inactive Micardis HCT 80 mg-25 mg tablet RxNorm: 054585 TAKE 1 TABLET BY MOUTH EVERY DAY 11/11/2020 12/09/2020 Inactive Micardis HCT 80 mg-25 mg tablet RxNorm: 021495 TAKE 1 TABLET BY MOUTH EVERY DAY 07/13/2020 11/09/2020 Inactive doxazosin 2 mg tablet RxNorm: 329190 TAKE 3 TABLETS BY MOUTH EVERY NIGHT AT BEDTIME 05/04/2020 05/04/2020 Inactive Micardis HCT 80 mg-25 mg tablet RxNorm: 639426 TAKE 1 TABLET BY MOUTH EVERY DAY 04/30/2020 07/12/2020 Inactive metoprolol succinate ER 100 mg tablet,extended release 24 hr RxNorm: 819724 1 Tablet(s) Oral QD 04/18/2020 No Stop Date Active Micardis HCT 80 mg-25 mg tablet RxNorm: 808659 TAKE 1 TABLET BY MOUTH EVERY DAY 04/10/2020 04/29/2020 Inactive Micardis HCT 80 mg-25 mg tablet RxNorm: 256323 TAKE 1 TABLET BY MOUTH EVERY DAY 01/18/2020 04/09/2020 Inactive Micardis HCT 80 mg-25 mg tablet RxNorm: 460978 1 Tablet (s) Oral QAM replaces losartan and HCTZ 10/19/2019 10/18/2019 Inactive Micardis HCT 80 mg-25 mg tablet RxNorm: 370785 TAKE 1 TABLET BY MOUTH EVERY DAY 10/19/2019 01/16/2020 Inactive amlodipine 5 mg tablet RxNorm: 097440 1 Tablet(s) Oral QD 07/20/2019 04/17/2020 Inactive hydrochlorothiazide 25 mg tablet RxNorm: 092506 1 Tablet(s) PO QAM 05/11/2019 07/19/2019 Inactive doxazosin 2 mg tablet RxNorm: 350461 3 Tablet(s) PO QHS 05/11/2019 Inactive losartan 100 mg tablet RxNorm: 323268 TAKE 1 TABLET BY MOUTH 04/15/2019 07/19/2019 Inactive trazodone 50 mg tablet RxNorm: 062689 1 TABLET(S) PO QHS NEE DED FOR SLEEP 03/15/2019 04/24/2019 Inactive hydrochlorothiazide 12.5 mg tablet RxNorm: 600617 1 Tablet(s) PO QA M 02/28/2019 05/10/2019 Inactive trazodone 50 mg tablet RxNorm: 163192 1 Tablet(s) PO QHS as nee ded for sleep 02/16/2019 03/14/2019 Inactive Men's Multivitamin 400 mcg-20 mcg-300 mcg tablet RxNorm: 1 Tablet(s) PO QD 02/16/2019 Active pantoprazole 40 mg tablet,delayed release RxNorm: 271061 1 Tabl et(s) PO QD 02/16/2019 Active hydrochlorothiazide 25 mg tablet RxNorm: 950632 1 Tablet(s) PO QAM 05/11/2019 05/10/2019 Inactive doxazosin 2 mg tablet RxNorm: 891715 1 Tablet(s) PO BID 05/11/2019 Inactive losartan 100 mg tablet RxNorm: 475785 1 Tablet(s) PO QD 04/15/2019 Inactive hydrochlorothiazide 12.5 mg tablet RxNorm: 016622 1 Tablet(s) PO QA M 02/28/2019 02/27/2019 Inactive amlodipine 10 mg tablet RxNorm: 151309 1 Tablet(s) PO QD 05/11/2019 0 05/10/2019 Inactive amlodipine 10 mg tablet RxNorm: 775503 1/2 Tablet(s) PO QD 07/20/2007/19/2019 Inactive Medication Administered No Medication Administered data Immunizations Vaccine Codes Date Status Covid-19 CVX: 207 10/09/2020 Covid-19 CVX: 207 09/11/2020 Results No Results data Procedures No Procedures data Vital Signs Date Vital 11/22/2020 Blood Pressure 1: 138/84 Code: 8480-6 BMI: 35.1 Code: 76515-4 Heart Rate 1: 72 bpm Height: 6' Code: 8302-2 Respiratory Rate: 18 bpm SpO2: 97% Temperature: 36.6 (C) / 97.8 (F) Weight: 259 lbs Code: 94547-8 04/18/2020 Blood Pressure 1: 126/74 Code: 8480-6 Heart Rate 1: 80 bpm Respiratory Rate: 20 bpm SpO2: 97% Temperature: 36.4 (C) / 97.5 (F) We ight: 254 lbs Code: 01129-8 07/20/2019 Blood Pressure 1: 146/82 Code: 8480-6 Heart Rate 1: 76 bpm Respiratory Rate: 20 bpm SpO2: 97% Temperature: 36.8 (C) / 98.2 (F) We ight: 245 lbs Code: 44166-3 05/11/2019 Blood Pressure 1: 144/82 Code: 8480-6 Heart Rate 1: 84 bpm Respiratory Rate: 20 bpm SpO2: 98% Temperature: 36.9 (C) / 98.5 (F) We ight: 252 lbs Code: 51975-0 04/25/2019 Blood Pressure 1: 132/78 Code: 8480-6 Heart Rate 1: 92 bpm Respiratory Rate: 20 bpm SpO2: 97% Temperature: 37.0 (C) / 98.6 (F) We ight: 248 lbs Code: 64618-2 02/16/2019 Blood Pressure 1: 142/84 Code: 8480-6 BMI: 33.9 Code: 40217-9 Heart Rate 1: 88 bpm Height: 6' Code: 8302-2 Respiratory Rate: 20 bpm SpO2: 97% Temperature: 37.0 (C) / 98.6 (F) Weight: 250 lbs Code: 42812-9 Functional Status No Functional Status data Reason For Visit Reason For Visit Effective Dates Notes well man exam (40-65 years) 11/22/2020 follow up 04/18/2020 follow up 07/20/2019 follow up 05/11/2019 follow up 04/25/2019 2mo fwup ~generic 02/16/2019 New Patient---establ ishing visit Encounters Encounter Performer Location Codes Date (69312) PREV VISIT EST AGE 40-64 Diagnosis: Encounter for general adult medical examination without abnormal findings[ICD10: Z00.00] Diagnosis: Essential (primary) hypertension[ICD10: I10] Diagnosis: Hyperglycemia[ICD10: R73.9] Gerardo ORLANDO DO [employer] CPT-4: 95836 11/22/2020 (11712) OFFICE/OUTPATIENT VISIT EST Diagnosis: Essential (primary) hypertension[ICD10: I10] Diagnosis: Localized edema[ICD10: R60.0] Gerardo TELLES [facility] CPT-4: 34367 04/18/2020 (77313) OFFICE/OUTPATIENT VISIT EST Diagnosis: Essential (primary) hypertension[ICD10: I10] Diagnosis: Localized edema[ICD10: R60.0] Gerardo TELLES [employer] CPT-4: 67917 07/20/2019 (76117) OFFICE/OUTPATIENT VISIT EST Diagnosis: Essential (primary) hypertension[ICD10: I10] Diagnosis: Localized edema[ICD10: R60.0] Gerardo TELLES [employer] CPT-4: 25940 05/11/2019 (58726) OFFICE/OUTPATIENT VISIT EST Diagnosis: Essential (primary) hypertension[ICD10: I10] Diagnosis: Localized edema[ICD10: R60.0] Gerardo TELLES [employer] CPT-4: 89235 04/25/2019 (21644) OFFICE/OUTPATIENT VISIT NEW Diagnosis: Essential (primary) hypertension[ICD10: I10] Diagnosis: Other fatigue[ICD10: R53.83] Diagnosis: Primary insomnia[ICD10: F51.01] Gerardo TELLES [employer] CPT-4: 99175 02/16/2019 Plan of Care Planned Activity Notes Codes Status Date Visit Diagnosis Plan: Essential (primary) hypertension Discussion: Stable Saw cardiology recently ICD-9 : 401.9 ICD-10 : I10 11/22/2020 Visit Diagnosis Plan: Encounter for gene ral adult medical examination without abnormal findings Discussion: Mediterranean diet Combinati on of cardio and weight bearing exercise Lab discussed Had both COVID vaccines Due for updated colonoscopy ICD-9 : V70.9 ICD-10 : Z00.00 11/22/2020 Visit Diagnosis Plan: Hyperglycemia Discussion: Lifest yle change and check CMP, Lipids and HbA1C in 6mos ICD-9 : 790.29 ICD-10 : R73.9 11/22/2020 Appointment: Gerardo Telles WPtel: [address] [place] [address] [place] will bring new insurance to app Annual Well Vis it 11/22/2020 Care Plan: Referral Order SNOMED-CT : 30 [id number] Pending 11/22/2020 Appointment: Gerardo Telles WPtel: [address] [place] [address] [place] to call with insurance RESCHEDULED 2020 Visit Diagnosis Plan: Localized edema Discussion: Impr carmen with DC of amlodopine ICD-9 : 782.3 ICD-10 : R60.0 04/18/2020 Visit Diagnosis Plan: Essential (primary) hypertension Discussion: Stable Follow Up: 6 months ICD-9 : 401.9 ICD-10 : I10 04/18/2020 Appointment: Gerardo Telles WPtel: [address] [place] [address] [place] FOLLOW UP 04/18/2020 Visit Diagnosis Plan: [...] 782.3 ICD-10 : R60.0 07/20/2019 Appointment: Gerardo Tellestel: [address] [place] [address] [place] FOLLOW UP 07/20/2019 Patient Education: Micardis HCT- OptimizeRX Coupon [phone] https://www.[employer]/samplemd/resources/getResource/61/8py28678-30f4-0ep2-1k Completed 07/20/2019 Visit Diagnosis Plan: Essential (primary) hypertension Discussion: Increase cardura to 6mg po q HS Continue lower dose of amlodopine and increased dose of HCTZ Monitor home BP readings ICD-9 : 401.9 ICD-10 : I10 05/11/2019 Appointment: Gerardo Telles WPtel: [id number] [facility] 05/11/2019 Patient Education: doxazosin- OptimizeRX Coupon [phone] https://www.[employer]/Commun.it/resources/[employer]/61/[email or web address] Completed 05/11/2019 Patient Education: hydrochlorothiazide- OptimizeRX Cou naeem [id number] https://www.[employer]/Commun.it/resources/[employer]/61/99659r4l-y554-30v6-03 Completed 05/11/2019 Visit Diagnosis Plan: Localized edema [...] : I10 04/25/2019 Appointment: Gerardo Telles WPtel: [id number] [facility] FOLLOW UP 04/25/2019 Visit Diagnosis [...] : I10 02/16/2019 Appointment: Gerardo Telles WPtel: [address] [place] [address] NEW PATIENT 02/16/2019 Patient Education: trazodone- OptimizeRX Coupon [phone] https://www.Commun.it.[employer]/Commun.it/resources/getResource/61/23e8e522-t799-63f1-h3 Completed 02/16/2019 Referral: Jose G Ferrara WPtel: [address] [facility] 1 [id number] [place] Referral Appointment Requested Instructions No Instructions Medical Equipment No Medical Equipment data Health Concerns Section Health Concerns data not found Goals Section Goals data not found Interventions Section Interventions data not found Health Status Evaluations/Outcomes Section Health Status Evaluations/Outcomes data not found Advance Directives No Advance Directive data
--- OUTSIDE RECORDS SUMMARY | 2021-07-26 07:43 | XMS REPORT | CCD ---
Author Author Davide Telles D.O. Organization GERARDO TELLES DO [facility] Address [address] [place] [address] Phone Care Team Providers Care Pedodontist Name Role Phone PP Unavailable CCM Unavailable Summary Purpose Interface Exchange Insurance Providers Payer name Policy type / Coverage type Covered republican ID Effective Begin Date Effective End Date ABS FOR Schedulicity Commercial Insurance [id number] Unknown Family history Mother Diagnosis Age At Onset Hypertension Unknown Atrial fibrillation Unknown COPD Unknown Father Diagnosis Age At Onset Diabetes mellitus Type 2 Unknown Cancer Unknown Coronary Artery Disease(CAD) Unknown sleep apnea Unknown Social History Social History Element Codes Description Effective Dates Marital status Unknown 02/16/2019 Employment Unknown Currently employed [employer] 02/16/[address]: 9634006 Former smoker quit 2001 02/16/2019 Frequency of drinks SNOMED CT: 555035974 1-4 drinks per week 01/2019 Allergies, Adverse [...] Fill Instructions doxazosin 4 mg tablet RxNorm: 998847 1 Tablet(s) Oral two times a day 06/17/2021 No Stop Date Active telmisartan 80 mg-hydrochlorothiazide 25 mg tablet RxNorm: 4 52617 Take 1 Tablet(s) Oral QAM 06/09/2021 07/08/2021 Active doxazosin 2 mg tablet RxNorm: 938843 TAKE 3 TABLETS BY MOUTH EVERY NIGHT AT BEDTIME 03/18/2021 06/16/2021 Inactive Micardis HCT 80 mg-25 mg tablet RxNorm: 409292 1 Tablet(s) Oral QAM 12/10/2020 12/10/2020 Inactive Micardis HCT 80 mg-25 mg tablet RxNorm: 860766 TAKE 1 TABLET BY MOUTH EVERY DAY 11/11/2020 12/09/2020 Inactive Micardis HCT 80 mg-25 mg tablet RxNorm: 163541 TAKE 1 TABLET BY MOUTH EVERY DAY 07/13/2020 11/09/2020 Inactive doxazosin 2 mg tablet RxNorm: 027714 TAKE 3 TABLETS BY MOUTH EVERY NIGHT AT BEDTIME 05/04/2020 05/04/2020 Inactive Micardis HCT 80 mg-25 mg tablet RxNorm: 741025 TAKE 1 TABLET BY MOUTH EVERY DAY 04/30/2020 07/12/2020 Inactive metoprolol succinate ER 100 mg tablet,extended release 24 hr RxNorm: 261223 1 Tablet(s) Oral QD 04/18/2020 No Stop Date Active Micardis HCT 80 mg-25 mg tablet RxNorm: 806371 TAKE 1 TABLET BY MOUTH EVERY DAY 04/10/2020 04/29/2020 Inactive Micardis HCT 80 mg-25 mg tablet RxNorm: 868873 TAKE 1 TABLET BY MOUTH EVERY DAY 01/18/2020 04/09/2020 Inactive Micardis HCT 80 mg-25 mg tablet RxNorm: 998826 1 Tablet (s) Oral QAM replaces losartan and HCTZ 10/19/2019 10/18/2019 Inactive Micardis HCT 80 mg-25 mg tablet RxNorm: 561258 TAKE 1 TABLET BY MOUTH EVERY DAY 10/19/2019 01/16/2020 Inactive amlodipine 5 mg tablet RxNorm: 542451 1 Tablet(s) Oral QD 07/20/2019 04/17/2020 Inactive hydrochlorothiazide 25 mg tablet RxNorm: 926699 1 Tablet(s) PO QAM 05/11/2019 07/19/2019 Inactive doxazosin 2 mg tablet RxNorm: 888896 3 Tablet(s) PO QHS 05/11/2019 Inactive losartan 100 mg tablet RxNorm: 256206 TAKE 1 TABLET BY MOUTH EV 04/15/2019 07/19/2019 Inactive trazodone 50 mg tablet RxNorm: 630886 1 TABLET(S) PO QHS NEE DED FOR SLEEP 03/15/2019 04/24/2019 Inactive hydrochlorothiazide 12.5 mg tablet RxNorm: 083383 1 Tablet(s) PO QA M 02/28/2019 05/10/2019 Inactive trazodone 50 mg tablet RxNorm: 467235 1 Tablet(s) PO QHS as nee ded for sleep 02/16/2019 03/14/2019 Inactive Men's Multivitamin 400 mcg-20 mcg-300 mcg tablet RxNorm: 1 Tablet(s) PO QD 02/16/2019 Active pantoprazole 40 mg tablet,delayed release RxNorm: 340017 1 Tabl et(s) PO QD 02/16/2019 Active hydrochlorothiazide 25 mg tablet RxNorm: 640429 1 Tablet(s) PO QAM 05/11/2019 05/10/2019 Inactive doxazosin 2 mg tablet RxNorm: 811256 1 Tablet(s) PO BID 05/11/2019 Inactive losartan 100 mg tablet RxNorm: 915698 1 Tablet(s) PO QD 04/15/2019 Inactive hydrochlorothiazide 12.5 mg tablet RxNorm: 453998 1 Tablet(s) PO QA M 02/28/2019 02/27/2019 Inactive amlodipine 10 mg tablet RxNorm: 727657 1 Tablet(s) PO QD 05/11/2019 0 05/10/2019 Inactive amlodipine 10 mg tablet RxNorm: 946472 1/2 Tablet(s) PO QD 07/20/20 19 07/19/2019 Inactive Medication Administered No Medication Administered data Immunizations Vaccine Codes Date Status Covid-19 CVX: 207 10/09/2020 Covid-19 CVX: 207 09/11/2020 Results No Results data Procedures No Procedures data Vital Signs Date Vital 06/17/2021 Blood Pressure 1: 154/83 Code: 8480-6 BMI: 35.5 Code: 42156-1 Heart Rate 1: 71 bpm Height: 6' Code: 8302-2 Respiratory Rate: 18 bpm SpO2: 97% Temperature: 36.5 (C) / 97.7 (F) Weight: 262 lbs Code: 25145-2 11/22/2020 Blood Pressure 1: 138/84 Code: 8480-6 BMI: 35.1 Code: 87343-7 Heart Rate 1: 72 bpm Height: 6' Code: 8302-2 Respiratory Rate: 18 bpm SpO2: 97% Temperature: 36.6 (C) / 97.8 (F) Weight: 259 lbs Code: 89865-0 04/18/2020 Blood Pressure 1: 126/74 Code: 8480-6 Heart Rate 1: 80 bpm Respiratory Rate: 20 bpm SpO2: 97% Temperature: 36.4 (C) / 97.5 (F) We ight: 254 lbs Code: 08451-4 07/20/2019 Blood Pressure 1: 146/82 Code: 8480-6 Heart Rate 1: 76 bpm Respiratory Rate: 20 bpm SpO2: 97% Temperature: 36.8 (C) / 98.2 (F) We ight: 245 lbs Code: 00135-6 05/11/2019 Blood Pressure 1: 144/82 Code: 8480-6 Heart Rate 1: 84 bpm Respiratory Rate: 20 bpm SpO2: 98% Temperature: 36.9 (C) / 98.5 (F) We ight: 252 lbs Code: 61330-3 04/25/2019 Blood Pressure 1: 132/78 Code: 8480-6 Heart Rate 1: 92 bpm Respiratory Rate: 20 bpm SpO2: 97% Temperature: 37.0 (C) / 98.6 (F) We ight: 248 lbs Code: 93188-0 02/16/2019 Blood Pressure 1: 142/84 Code: 8480-6 BMI: 33.9 Code: 15877-7 Heart Rate 1: 88 bpm Height: 6' Code: 8302-2 Respiratory Rate: 20 bpm SpO2: 97% Temperature: 37.0 (C) / 98.6 (F) Weight: 250 lbs Code: 15617-4 Functional Status No Functional Status data Reason For Visit Reason For Visit Effective Dates Notes follow up 06/17/2021 well man exam (40-65 years) 11/22/2020 follow up 04/18/2020 follow up 07/20/2019 follow up 05/11/2019 follow up 04/25/2019 2mo fwup ~generic 02/16/2019 New Patient---establ ishing visit Encounters Encounter Performer Location Codes Date (93959) OFFICE/OUTPATIENT VISIT EST Diagnosis: Essential (primary) hypertension[ICD10: I10] Diagnosis: Hyperglycemia[ICD10: R73.9] Diagnosis: Mixed hyperlipidemia[ICD10: E78.2] Anna Marie Valentin [employer] CPT-4: 04129 06/17/2021 ([id number]) PREV VISIT EST AGE 40-64 Diagnosis: Encounter for general adult medical examination without abnormal findings[ICD10: Z00.00] Diagnosis: Essential (primary) hypertension[ICD10: I10] Diagnosis: Hyperglycemia[ICD10: R73.9] Gerardo ORLANDO [facility] CPT-4: 89300 11/22/2020 ([id number]) OFFICE/OUTPATIENT VISIT EST Diagnosis: Essential (primary) hypertension[ICD10: I10] Diagnosis: Localized edema[ICD10: R60.0] Gerardo Valentin [facility] CPT-4: 67479 04/18/2020 ([id number]) OFFICE/OUTPATIENT VISIT EST Diagnosis: Essential (primary) hypertension[ICD10: I10] Diagnosis: Localized edema[ICD10: R60.0] Gerardo Valentin [facility] CPT-4: 33206 07/20/2019 ([id number]) OFFICE/OUTPATIENT VISIT EST Diagnosis: Essential (primary) hypertension[ICD10: I10] Diagnosis: Localized edema[ICD10: R60.0] Gerardo TELLES [facility] CPT-4: 84994 05/11/2019 ([id number]) OFFICE/OUTPATIENT VISIT EST Diagnosis: Essential (primary) hypertension[ICD10: I10] Diagnosis: Localized edema[ICD10: R60.0] Gerardo TELLES [facility] CPT-4: 71098 04/25/2019 ([id number]) OFFICE/OUTPATIENT VISIT NEW Diagnosis: Essential (primary) hypertension[ICD10: I10] Diagnosis: Other fatigue[ICD10: R53.83] Diagnosis: Primary insomnia[ICD10: F51.01] Gerardo TELLES [facility] CPT-4: 15368 02/16/2019 Plan of Care Planned Activity Notes [...] Appointment: Anna Marie Nogueira [facility]el[facility] [phone] [facility] FO[facility] UP 06/17/2021 Patient Education: Patient Medication Summary Completed 06/17/2021 Patient Education: doxazosin- OptimizeRX Coupon [id number] https://www.Diet TV.Wildfire/samplemd/resources/getResource/61/3k1x9xn1-2n0y-819g-6s Completed 06/17/2021 Patient Education: High Blood Pressure Co mpleted 06/17/2021 Visit Diagnosis Plan: Essential (primary) hypertension Discussion: Stable Saw cardiology recently ICD-9 : 401.9 ICD-10 : I10 11/22/2020 Visit Diagnosis Plan: Encounter for gene [facility] adult medical examination without abnormal findings Discussion: Mediterranean diet Combinati on of cardio and weight bearing exercise Lab discussed Had both COVID vaccines Due for updated colonoscopy ICD-9 : V70.9 ICD-10 : Z00.00 11/22/2020 Visit Diagnosis Plan: Hyperglycemia Discussion: Lifest yle change and check CMP, Lipids and HbA1C in 6mos ICD-9 : 790.29 ICD-10 : R73.9 11/22/2020 Appointment: Gerardo Telles WPtel: [address] [place], [place] [phone] [place] will bring new insurance to app Annual Well Vis it 11/22/2020 Care Plan: Referral Order SNOMED-CT : 30 0942295 Pending 11/22/2020 Appointment: Gerardo Telles WPtel: [address] [place], [place] [phone] [place] to call with insurance RESCHEDULED 2020 Visit Diagnosis Plan: Localized edema Discussion: Impr carmen with DC of amlodopine ICD-9 : 782.3 ICD-10 : R60.0 04/18/2020 Visit Diagnosis Plan: Essential (primary) hypertension Discussion: Stable Follow Up: 6 months ICD-9 : 401.9 ICD-10 : I10 04/18/2020 Appointment: Gerardo Telles WPtel: [address] [place], [place] [phone] [place] FOLLOW UP 04/18/2020 Visit Diagnosis Plan: [...] : R60.0 07/20/2019 Appointment: Gerardo Telles WPtel: [address] [place], [place] [phone] [place] FOLLOW UP 07/20/2019 Patient Education: Micardis HCT- OptimizeRX Coupon [phone] https://www.Scytl/sampleCrestock/resources/getResource/61/8di64362-77n6-1hg3-1y Completed 07/20/2019 Visit Diagnosis Plan: Essential (primary) hypertension Discussion: Increase cardura to 6mg po q HS Continue lower dose of amlodopine and increased dose of HCTZ Monitor home BP readings ICD-9 : 401.9 ICD-10 : I10 05/11/2019 Appointment: [facility]ardo Telles [facility]Ptel[facility] [phone] [facility] [facility] 05/11/2019 Patient Education: doxazosin- OptimizeRX Coupon [id number] https://www.Scytl/Diet TV/resources/getResource/61/022e0247-22k5-5cx4-8v Completed 05/11/2019 Patient Education: hydrochlorothiazide- OptimizeRX Cou naeem [id number] https://www.Scytl/samplemd/resources/getResource/61/38941f3m-f879-88i8-89 Completed 05/11/2019 Visit Diagnosis Plan: Localized edema [...] I10 04/25/2019 Appointment: Gerardo Telles WPtel[facility] [phone] [facility] [facility] FOLLOW UP 04/25/2019 Visit Diagnosis Plan: Other [...] : I10 02/16/2019 Appointment: Gerardo Telles WPtel: [phone] NEW PATIENT 02/16/2019 Patient Education: trazodone- OptimizeRX Coupon [id number] https://www.Diet TV.Wildfire/samplemd/resources/getResource/61/60f9c919-i877-86b7-y3 Completed 02/16/2019 Referral: Jose G Ferrara WPtel: [phone] Referral Appointment Requested Instructions No Instructions Medical Equipment No Medical Equipment data Health Concerns Section Health Concerns data not found Goals Section Goals data not found Interventions Section Interventions data not found Health Status Evaluations/Outcomes Section Health Status Evaluations/Outcomes data not found Advance Directives No Advance Directive data
--- OUTSIDE RECORDS SUMMARY | 2021-07-26 07:43 | XMS REPORT | CCD ---
Author Author Davide Telles D.O. Organization GERARDO TELLES DO [facility] Address [address] [place] [address] Phone Care Team Providers Care Senior Process Control Tech Name Role Phone PP Unavailable CCM Unavailable Summary Purpose Interface Exchange Insurance Providers Payer name Policy type / Coverage type Covered alliance party ID Effective Begin Date Effective End Date ABS FOR A's Child Commercial Insurance [id number] Unknown Family history Mother Diagnosis Age At Onset Hypertension Unknown Atrial fibrillation Unknown COPD Unknown Father Diagnosis Age At Onset Diabetes mellitus Type 2 Unknown Cancer Unknown Coronary Artery Disease(CAD) Unknown sleep apnea Unknown Social History Social History Element Codes Description Effective Dates Marital status Unknown 02/16/2019 Employment Unknown Currently employed [employer] 02/16/[address]: 1202990 Former smoker quit 2001 02/16/2019 Frequency of drinks SNOMED CT: 908386515 1-4 drinks per week 01/2019 Allergies, Adverse [...] Fill Instructions doxazosin 4 mg tablet RxNorm: 145073 1 Tablet(s) Oral two times a day 06/17/2021 No Stop Date Active telmisartan 80 mg-hydrochlorothiazide 25 mg tablet RxNorm: 4 81555 Take 1 Tablet(s) Oral QAM 06/09/2021 07/08/2021 Active doxazosin 2 mg tablet RxNorm: 187942 TAKE 3 TABLETS BY MOUTH EVERY NIGHT AT BEDTIME 03/18/2021 06/16/2021 Inactive Micardis HCT 80 mg-25 mg tablet RxNorm: 099797 1 Tablet(s) Oral QAM 12/10/2020 12/10/2020 Inactive Micardis HCT 80 mg-25 mg tablet RxNorm: 986220 TAKE 1 TABLET BY MOUTH EVERY DAY 11/11/2020 12/09/2020 Inactive Micardis HCT 80 mg-25 mg tablet RxNorm: 540519 TAKE 1 TABLET BY MOUTH EVERY DAY 07/13/2020 11/09/2020 Inactive doxazosin 2 mg tablet RxNorm: 355392 TAKE 3 TABLETS BY MOUTH EVERY NIGHT AT BEDTIME 05/04/2020 05/04/2020 Inactive Micardis HCT 80 mg-25 mg tablet RxNorm: 868837 TAKE 1 TABLET BY MOUTH EVERY DAY 04/30/2020 07/12/2020 Inactive metoprolol succinate ER 100 mg tablet,extended release 24 hr RxNorm: 105779 1 Tablet(s) Oral QD 04/18/2020 No Stop Date Active Micardis HCT 80 mg-25 mg tablet RxNorm: 450408 TAKE 1 TABLET BY MOUTH EVERY DAY 04/10/2020 04/29/2020 Inactive Micardis HCT 80 mg-25 mg tablet RxNorm: 737969 TAKE 1 TABLET BY MOUTH EVERY DAY 01/18/2020 04/09/2020 Inactive Micardis HCT 80 mg-25 mg tablet RxNorm: 157026 1 Tablet (s) Oral QAM replaces losartan and HCTZ 10/19/2019 10/18/2019 Inactive Micardis HCT 80 mg-25 mg tablet RxNorm: 865759 TAKE 1 TABLET BY MOUTH EVERY DAY 10/19/2019 01/16/2020 Inactive amlodipine 5 mg tablet RxNorm: 886954 1 Tablet(s) Oral QD 07/20/2019 04/17/2020 Inactive hydrochlorothiazide 25 mg tablet RxNorm: 470360 1 Tablet(s) PO QAM 05/11/2019 07/19/2019 Inactive doxazosin 2 mg tablet RxNorm: 288822 3 Tablet(s) PO QHS 05/11/2019 Inactive losartan 100 mg tablet RxNorm: 589772 TAKE 1 TABLET BY MOUTH EV 04/15/2019 07/19/2019 Inactive trazodone 50 mg tablet RxNorm: 299112 1 TABLET(S) PO QHS NEE DED FOR SLEEP 03/15/2019 04/24/2019 Inactive hydrochlorothiazide 12.5 mg tablet RxNorm: 870503 1 Tablet(s) PO QA M 02/28/2019 05/10/2019 Inactive trazodone 50 mg tablet RxNorm: 842209 1 Tablet(s) PO QHS as nee ded for sleep 02/16/2019 03/14/2019 Inactive Men's Multivitamin 400 mcg-20 mcg-300 mcg tablet RxNorm: 1 Tablet(s) PO QD 02/16/2019 Active pantoprazole 40 mg tablet,delayed release RxNorm: 908320 1 Tabl et(s) PO QD 02/16/2019 Active hydrochlorothiazide 25 mg tablet RxNorm: 205449 1 Tablet(s) PO QAM 05/11/2019 05/10/2019 Inactive doxazosin 2 mg tablet RxNorm: 129795 1 Tablet(s) PO BID 05/11/2019 Inactive losartan 100 mg tablet RxNorm: 387819 1 Tablet(s) PO QD 04/15/2019 Inactive hydrochlorothiazide 12.5 mg tablet RxNorm: 107466 1 Tablet(s) PO QA M 02/28/2019 02/27/2019 Inactive amlodipine 10 mg tablet RxNorm: 143621 1 Tablet(s) PO QD 05/11/2019 0 05/10/2019 Inactive amlodipine 10 mg tablet RxNorm: 913556 1/2 Tablet(s) PO QD 07/20/20 19 07/19/2019 Inactive Medication Administered No Medication Administered data Immunizations Vaccine Codes Date Status Covid-19 CVX: 207 10/09/2020 Covid-19 CVX: 207 09/11/2020 Results No Results data Procedures No Procedures data Vital Signs Date Vital 06/17/2021 Blood Pressure 1: 154/83 Code: 8480-6 BMI: 35.5 Code: 96820-9 Heart Rate 1: 71 bpm Height: 6' Code: 8302-2 Respiratory Rate: 18 bpm SpO2: 97% Temperature: 36.5 (C) / 97.7 (F) Weight: 262 lbs Code: 58239-6 11/22/2020 Blood Pressure 1: 138/84 Code: 8480-6 BMI: 35.1 Code: 89780-3 Heart Rate 1: 72 bpm Height: 6' Code: 8302-2 Respiratory Rate: 18 bpm SpO2: 97% Temperature: 36.6 (C) / 97.8 (F) Weight: 259 lbs Code: 55303-5 04/18/2020 Blood Pressure 1: 126/74 Code: 8480-6 Heart Rate 1: 80 bpm Respiratory Rate: 20 bpm SpO2: 97% Temperature: 36.4 (C) / 97.5 (F) We ight: 254 lbs Code: 36160-5 07/20/2019 Blood Pressure 1: 146/82 Code: 8480-6 Heart Rate 1: 76 bpm Respiratory Rate: 20 bpm SpO2: 97% Temperature: 36.8 (C) / 98.2 (F) We ight: 245 lbs Code: 73901-2 05/11/2019 Blood Pressure 1: 144/82 Code: 8480-6 Heart Rate 1: 84 bpm Respiratory Rate: 20 bpm SpO2: 98% Temperature: 36.9 (C) / 98.5 (F) We ight: 252 lbs Code: 04302-2 04/25/2019 Blood Pressure 1: 132/78 Code: 8480-6 Heart Rate 1: 92 bpm Respiratory Rate: 20 bpm SpO2: 97% Temperature: 37.0 (C) / 98.6 (F) We ight: 248 lbs Code: 43566-0 02/16/2019 Blood Pressure 1: 142/84 Code: 8480-6 BMI: 33.9 Code: 26368-4 Heart Rate 1: 88 bpm Height: 6' Code: 8302-2 Respiratory Rate: 20 bpm SpO2: 97% Temperature: 37.0 (C) / 98.6 (F) Weight: 250 lbs Code: 33176-0 Functional Status No Functional Status data Reason For Visit Reason For Visit Effective Dates Notes follow up 06/17/2021 well man exam (40-65 years) 11/22/2020 follow up 04/18/2020 follow up 07/20/2019 follow up 05/11/2019 follow up 04/25/2019 2mo fwup ~generic 02/16/2019 New Patient---establ ishing visit Encounters Encounter Performer Location Codes Date (92363) OFFICE/OUTPATIENT VISIT EST Diagnosis: Essential (primary) hypertension[ICD10: I10] Diagnosis: Hyperglycemia[ICD10: R73.9] Diagnosis: Mixed hyperlipidemia[ICD10: E78.2] Anna Marie Valentin [employer] CPT-4: 05395 06/17/2021 (82917) PREV VISIT EST AGE 40-64 Diagnosis: Encounter for general adult medical examination without abnormal findings[ICD10: Z00.00] Diagnosis: Essential (primary) hypertension[ICD10: I10] Diagnosis: Hyperglycemia[ICD10: R73.9] Gerardo ORLANDO [email or web address] CPT-4: 35072 11/22/2020 ([id number]) OFFICE/OUTPATIENT VISIT EST Diagnosis: Essential (primary) hypertension[ICD10: I10] Diagnosis: Localized edema[ICD10: R60.0] Gerardo Valentin [employer] CPT-4: 65928 04/18/2020 ([id number]) OFFICE/OUTPATIENT VISIT EST Diagnosis: Essential (primary) hypertension[ICD10: I10] Diagnosis: Localized edema[ICD10: R60.0] Gerardo Valentin [employer] CPT-4: 34147 07/20/2019 ([id number]) OFFICE/OUTPATIENT VISIT EST Diagnosis: Essential (primary) hypertension[ICD10: I10] Diagnosis: Localized edema[ICD10: R60.0] Gerardo TELLES [email or web address] CPT-4: 38170 05/11/2019 (32228) OFFICE/OUTPATIENT VISIT EST Diagnosis: Essential (primary) hypertension[ICD10: I10] Diagnosis: Localized edema[ICD10: R60.0] Gerardo TELLES [email or web address] CPT-4: 39708 04/25/2019 ([id number]) OFFICE/OUTPATIENT VISIT NEW Diagnosis: Essential (primary) hypertension[ICD10: I10] Diagnosis: Other fatigue[ICD10: R53.83] Diagnosis: Primary insomnia[ICD10: F51.01] Gerardo TELLES [email or web address] CPT-4: 19962 02/16/2019 Plan of Care Planned Activity Notes [...] Appointment: Anna Marie Nogueira [facility]el[facility] [phone] [facility] [facility] 06/17/2021 Patient Education: Patient Medication Summary Completed 06/17/2021 Patient Education: doxazosin- OptimizeRX Coupon [id number] https://www.Yorumla.com.[employer]/samplemd/resources/getResource/61/0u9r3uc3-2s3g-049u-8g Completed 06/17/2021 Patient Education: High Blood Pressure Co mpleted 06/17/2021 Visit Diagnosis Plan: Essential (primary) hypertension Discussion: Stable Saw cardiology recently ICD-9 : 401.9 ICD-10 : I10 11/22/2020 Visit Diagnosis Plan: Encounter for gene [facility] adult medical examination without abnormal findings Discussion: Mediterranean diet Combinati on of cardio and weight bearing exercise Lab discussed Had both COVID vaccines Due for updated colonoscopy ICD-9 : V70.9 ICD-10 : Z00.00 11/22/2020 Visit Diagnosis Plan: Hyperglycemia Discussion: Lifest yle change and check CMP, Lipids and HbA1C in 6mos ICD-9 : 790.29 ICD-10 : R73.9 11/22/2020 Appointment: Gerardo Telles WPtel: [address] [place], [place] [phone] [place] will bring new insurance to app Annual Well Vis it 11/22/2020 Care Plan: Referral Order SNOMED-CT : 30 7196216 Pending 11/22/2020 Appointment: Gerardo Telles WPtel: [address] [place], [place] [phone] [place] to call with insurance RESCHEDULED 2020 Visit Diagnosis Plan: Localized edema Discussion: Impr carmen with DC of amlodopine ICD-9 : 782.3 ICD-10 : R60.0 04/18/2020 Visit Diagnosis Plan: Essential (primary) hypertension Discussion: Stable Follow Up: 6 months ICD-9 : 401.9 ICD-10 : I10 04/18/2020 Appointment: Gerardo Telles WPtel: [address] [place], [place] [phone] [place] FOLLOW UP 04/18/2020 Visit Diagnosis Plan: [...] : R60.0 07/20/2019 Appointment: Gerardo Telles WPtel: [address] [place], [place] [phone] [place] FOLLOW UP 07/20/2019 Patient Education: Micardis HCT- OptimizeRX Coupon [phone] https://www.GetJar/sampleEtherstack/resources/getResource/61/4bu17593-93l8-3bz0-2e Completed 07/20/2019 Visit Diagnosis Plan: Essential (primary) hypertension Discussion: Increase cardura to 6mg po q HS Continue lower dose of amlodopine and increased dose of HCTZ Monitor home BP readings ICD-9 : 401.9 ICD-10 : I10 05/11/2019 Appointment: Gerardo Telles [facility]el[facility] [phone] [facility] [facility] 05/11/2019 Patient Education: doxazosin- OptimizeRX Coupon [phone] [id number] https://www.GetJar/Yorumla.com/resources/getResource/61/426z7074-91t7-0jr7-3a Completed 05/11/2019 Patient Education: hydrochlorothiazide- OptimizeRX Cou naeem [id number] https://www.GetJar/samplemd/resources/getResource/61/16865a1b-m474-28l8-23 Completed 05/11/2019 Visit Diagnosis Plan: Localized edema [...] I10 04/25/2019 Appointment: Gerardo Telles [facility]Ptel[facility] [phone] [facility] [facility] FOLLOW UP 04/25/2019 Visit Diagnosis [...] : I10 02/16/2019 Appointment: Gerardo Telles WPtel: [phone] NEW PATIENT 02/16/2019 Patient Education: trazodone- OptimizeRX Coupon [id number] https://www.Yorumla.com.[employer]/samplemd/resources/getResource/61/07r1n796-p033-96t0-c0 Completed 02/16/2019 Referral: Jose G Ferrara WPtel: [address] Referral Appointment Requested Instructions No Instructions Medical Equipment No Medical Equipment data Health Concerns Section Health Concerns data not found Goals Section Goals data not found Interventions Section Interventions data not found Health Status Evaluations/Outcomes Section Health Status Evaluations/Outcomes data not found Advance Directives No Advance Directive data
[2021-07-26] MEDS ORDERED: LACTATED RINGERS 1,000 ML IV STA (07:51)
[2021-07-26] MEDS ORDERED: LACTATED RINGERS 1,000 ML IV ONE (07:54)
--- NOTE | 2021-07-26 07:57 | Pre-Op Note & Conscious Sedat ---
Pre-Operative Progress Note H&P Reviewed The H&P was reviewed, patient examined and no changes noted. Date H&P Reviewed: Jul 26, 2021 Time H&P Reviewed: 07:57 Conscious Sedation Pre-Proced ASA Score 1 For ASA 3 and 4: Consider anesthesia and medical clearance. Also, for patients with a history of failed moderate sedation consider anesthesia. Airway Lungs Heart ASA score ASA 1: a normal healthy patient ASA 2: a patient with a mild systemic disease (mid diabetes, controlled hypertension, obesity ASA 3: a patient with a severe systemic disease that limits activity (angina, COPD, prior Myocardial infarction) ASA 4: a patient with an incapacitating disease that is a constant threat to life (CHF, renal failure) ASA 5: a moribund patient not expected to survive 24 hrs. (ruptured aneurysm) ASA 6: a declared brain- patient whose organs are being harvested. For emergent operations, add the letter E after the classification Mallampati Classification Grade 2 Sedation Plan Analgesia, Amnesia, Plan communicated to team members, Discussed options with patient/fam, Discussed risks with patient/fam The patient is an appropriate candidate to undergo the planned procedure, sedation, and anesthesia. The patient immediately re-assessed prior to indication. MARIE LOERA MD Jul 26, 2021 07:57
[2021-07-26 08:00] VITALS: BP 138/93
[2021-07-26] MEDS ORDERED: LIDOCAINE JELLY 2% 6 ML SYRINGE MM PRN (08:00)
[2021-07-26] MEDS ORDERED: PROPOFOL INJECTION 50 ML IV ONE (08:30)
[2021-07-26 08:50] VITALS: BP 147/74
--- NOTE | 2021-07-26 08:54 | Anesthesia-General Post-Op ---
MAC Patient Condition Mental Status/LOC: Same as Preop Cardiovascular: Satisfactory Nausea/Vomiting: Absent Respiratory: Satisfactory Pain: Controlled Complications: Absent Post Op Complications Complications None Follow Up Care/Instructions Patient Instructions None needed. Anesthesiology Discharge Order Discharge Order Patient is doing well, no complaints, stable vital signs, no apparent adverse anesthesia problems. No complications reported per nursing. JAZMYN NORRIS CRNA Jul 26, 2021 08:54
[2021-07-26 08:55] VITALS: BP 142/69
[2021-07-26 09:00] VITALS: BP 138/93
[2021-07-26 09:20] VITALS: BP 140/70
--- NOTE | 2021-07-26 13:40 | OPERATIVE REPORT ---
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 DESCRIPTION OF PROCEDURE: The patient was placed in left lateral decubitus position. Prior to undergoing colonoscopy, digital rectal evaluation was performed. Anal sphincter tone was normal. Perianal reflexes intact. Prostate is mild to moderately enlarged, anodular and nontender to digital inspection. No abnormalities were noted on digital inspection of anal canal or distal rectal vault. The colonoscope was then inserted into the rectum and under direct visualization, advanced to cecum. The cecum was identified by identification of ileocecal valve and cecal strap. Quality of prep was good. FINDINGS: There was no evidence for internal or external hemorrhoids and the rectum was unremarkable. Mild diverticular disease confined to the sigmoid colon was present. One inflammatory appearing distal sigmoid 4 mm sessile polyp was noted. It was biopsied and ablated with no blood loss. Present in the proximal sigmoid colon was an 8 mm inflammatory appearing polyp, likely remnant from previous sessile polyp with high-grade dysplasia. It was biopsied and ablated with no blood loss. The remainder of the sigmoid colon, descending colon, splenic flexure, transverse colon, ascending colon, hepatic flexure and cecum were unremarkable. ASSESSMENT: Two inflamed polyps were biopsied and ablated as noted above. The one in the proximal sigmoid colon, likely remnant from the previous polypectomy. We will await histopathology report, but likely recommend as long as there is no evidence for microscopic malignancy, repeat colonoscopy in one year. I thank you for the referral of this pleasant gentleman. Job ID: [id number] DocumentID: [id number] Dictated Date: 07/26/2021 09:01:46 Top And Trim Worker Date: 07/26/2021 13:39:43 Dictated By: MARIE LOERA MD [facility]
== END 2021-07-26 09:45 | disposition home or self-care (01) ==
LOC: ENDO 07:39
PROVIDERS: ATTEND Internal Medicine
DX: Z12.11 Encounter for screening for malignant neoplasm of colon (principal); K63.5 Polyp of colon; K57.30 Diverticulosis of large intestine without perforation or abscess without bleeding; I10 Essential (primary) hypertension; G47.33 Obstructive sleep apnea (adult) (pediatric); E66.9 Obesity, unspecified; Z99.89 Dependence on other enabling machines and devices; Z68.34 Body mass index [BMI] 34.0-34.9, adult; Z87.891 Personal history of nicotine dependence; Z79.899 Other long term (current) drug therapy
CPT/HCPCS: 88305

== ENCOUNTER → 2021-12-31 | Outpatient (CLI) | payer OTHER ==
[2021-12-31 08:54] LABS: ALBUMIN 4.3 GM/DL (3.2-4.5); BILIRUBIN,TOTAL 0.6 MG/DL (0.1-1.0); CALCIUM 9.2 MG/DL (8.5-10.1); CREATININE SERUM 0.93 MG/DL (0.60-1.30); POTASSIUM 3.8 MMOL/L (3.6-5.0); TOTAL PROTEIN 7.1 GM/DL (6.4-8.2)
== END ==
LOC: LAB 08:16
PROVIDERS: ATTEND Internal Medicine Cardiovascular Disease
DX: E78.2 Mixed hyperlipidemia (principal)
CPT/HCPCS: 36415; 80053; 80061

== ENCOUNTER 2022-07-02 06:38 | Outpatient (CLI) | payer OTHER ==
[~2022-07-02] VITALS: Ht 183 cm; Wt 114.0 kg
== END 2022-07-02 09:22 | disposition home or self-care (01) ==
LOC: PREOP 06:38
PROVIDERS: ATTEND Internal Medicine
DX: Z01.818 Encounter for other preprocedural examination (principal)

== ENCOUNTER 2022-07-11 08:05 | Day surgery (SDC) | payer OTHER ==
--- NOTE | 2022-06-27 09:27 | HISTORY AND PHYSICAL ---
DATE OF SERVICE: COLONOSCOPY HISTORY AND PHYSICAL HISTORY OF PRESENT ILLNESS: The patient is a 62-year-old white male seen for followup colonoscopy for surveillance of a serrated polyp with high-grade dysplasia removed from the mid sigmoid colon, year and a half ago. Followup colonoscopy one year ago revealed an inflammatory appearing polyp, which was confirmed on biopsy for which no evidence for dysplasia was noted. He reports that he has done well. He has noted no abdominal pain, bright red blood per rectum, has had no change in bowel habit and there has been no change in his health history, requiring no surgeries and no new medication. PAST MEDICAL HISTORY: Significant for hypertension and gastroesophageal reflux with no history of Falcon's. He is not aware of any family history for colon cancer. No past smoking history or significant alcohol intake. He reports that he has been portion controlling, more physically active and his weight was down 12 pounds compared to a year ago. PHYSICAL EXAMINATION: GENERAL: Reveals a white male, appeared to be in no acute distress. VITAL SIGNS: Weight 251 pounds, blood pressure 124/78. HEENT: Unremarkable. Sclerae nonicteric. CHEST: Clear. CARDIOVASCULAR: Reveals a regular rate and rhythm without murmur, S3 or S4. ABDOMEN: Soft, supple without mass, organomegaly or tenderness. EXTREMITIES: Reveal no cyanosis, clubbing or edema. ASSESSMENT: The patient is being set up for surveillance colonoscopy for followup of a serrated polyp with high-grade dysplasia removed from mid sigmoid colon 18 months ago. Prep instructions were given, and questions were answered. Job ID: [id number] DocumentID: [id number] Dictated Date: 06/25/2022 16:52:25 Gasket Maker Date: 06/25/2022 17:06:33 Dictated By: MARIE LOERA MD
[~2022-07-11] VITALS: Ht 183 cm; Wt 114.0 kg
[2022-07-11] MEDS ORDERED: LACTATED RINGERS 1,000 ML IV STA (08:10)
--- NOTE | 2022-07-11 08:22 | Pre-Op Note & Conscious Sedat ---
Pre-Operative Progress Note Date H&P Reviewed: Jul 11, 2022 Time H&P Reviewed: 08:21 History & Physical: H&P Reviewed, Patient Examed, No changes noted Pre-Op Diagnosis: colon polyp f/u Conscious Sedation Pre-Proced ASA Score 2 For ASA 3 and 4: Consider anesthesia and medical clearance. Also, for patients with a history of failed moderate sedation consider anesthesia. Airway Lungs Heart ASA score ASA 1: a normal healthy patient ASA 2: a patient with a mild systemic disease (mid diabetes, controlled hypertension, obesity ASA 3: a patient with a severe systemic disease that limits activity (angina, COPD, prior Myocardial infarction) ASA 4: a patient with an incapacitating disease that is a constant threat to life (CHF, renal failure) ASA 5: a moribund patient not expected to survive 24 hrs. (ruptured aneurysm) ASA 6: a declared brain- patient whose organs are being harvested. For emergent operations, add the letter E after the classification Mallampati Classification Grade 2 Sedation Plan Analgesia, Amnesia, Plan communicated to team members, Discussed options with patient/fam, Discussed risks with patient/fam The patient is an appropriate candidate to undergo the planned procedure, sedation, and anesthesia. The patient immediately re-assessed prior to indication. MARIE LOERA MD Jul 11, 2022 08:22
[2022-07-11 08:40] VITALS: BP 128/77
[2022-07-11] MEDS ORDERED: PROPOFOL INJECTION 50 ML IV ONE (08:59)
[2022-07-11] MEDS ORDERED: MIDAZOLAM 2 MG/2 ML (VERSED) VIAL ONE (08:59)
[2022-07-11 09:30] VITALS: BP 93/53
--- NOTE | 2022-07-11 09:32 | Progress Note-Post Operative ---
Post-Procedure Note Physician (s)/Amusement Park Ride Mechanic (s) Physician MARIE LOERA MD Pre-Procedure Diagnosis Pre-Procedure Diagnosis: colon polyp f/u Post-Procedure Diagnosis Post-operative diagnosis: Colonoscopy was performed for polyp surveillance history of serrated adenoma with high-grade dysplasia removed from the mid sigmoid colon. The patient was placed in the left lateral decubitus position. Prior to undergoing colonoscopy digital rectal evaluation was performed. Anal stricture tone was normal and the perianal reflexes intact. The prostate is moderately enlarged and a nodular on digital inspection with no other abnormalities being noted on digital inspection of the anal canal or distal rectal vault. The colonoscope was then inserted into the rectum and under direct visualization advanced to the cecum. The cecum was identified by identification of the ileocecal valve and the cecal strap. Photographic documentation was obtained. A careful inspection was made as the colonoscope was withdrawn. Quality of the prep was good. Findings: There were no evidence for internal or external hemorrhoids. Present at the rectosigmoid junction was a 1 to 2 mm sessile polyp that was photographed and biopsied and ablated with no subsequent blood loss. A 2 mm sessile hyperplastic appearing polyp was noted in the mid sigmoid colon it was biopsied and ablated with no subsequent blood loss after photographic documentation. there was no endoscopic evidence for the previously ablated serrated adenoma in the sigmoid colon. Moderate diverticular disease noted in the mid and proximal sigmoid colon was again noted without evidence for diverticulitis. The descending colon splenic flexure transverse colon hepatic flexure ascending colon and cecum were unremarkable. Assessment: there was no evidence for the previously cauterized serrated adenoma with high-grade dysplasia in the mid sigmoid colon. Patient had 2 diminutive polyps 1 removed from the distal sigmoid colon and the other one from the rectosigmoid junction without blood loss as noted above. The prostate is moderately enlarged and there is moderate diverticular disease noted in the mid and proximal sigmoid colon without evidence for diverticulitis. Would advocate surveillance colonoscopy in 3 years as long as there are no surprises on histopathology report today. MARIE LOERA MD Jul 11, 2022 09:32
[2022-07-11 09:34] VITALS: BP 95/56
[2022-07-11 09:45] VITALS: BP 95/56
[2022-07-11 09:57] VITALS: BP 95/56
--- NOTE | 2022-07-11 11:10 | Anesthesia-General Post-Op ---
MAC Patient Condition Mental Status/LOC: Same as Preop Cardiovascular: Satisfactory Nausea/Vomiting: Absent Respiratory: Satisfactory Pain: Controlled Complications: Absent Post Op Complications Complications None Follow Up Care/Instructions Patient Instructions None needed. Anesthesiology Discharge Order Discharge Order Patient is doing well, no complaints, stable vital signs, no apparent adverse anesthesia problems. No complications reported per nursing. ADALI VAUGHN CRNA Jul 11, 2022 11:10
== END 2022-07-11 10:00 | disposition home or self-care (01) ==
LOC: ENDO 08:05
PROVIDERS: ATTEND Internal Medicine
DX: Z12.11 Encounter for screening for malignant neoplasm of colon (principal); K63.5 Polyp of colon; K57.30 Diverticulosis of large intestine without perforation or abscess without bleeding; K21.9 Gastro-esophageal reflux disease without esophagitis; N40.0 Benign prostatic hyperplasia without lower urinary tract symptoms; Z86.010 Personal history of colon polyps; Z87.891 Personal history of nicotine dependence; Z79.899 Other long term (current) drug therapy

== ENCOUNTER → 2022-12-16 | Outpatient (CLI) | payer OTHER ==
[2022-12-16 09:25] LABS: BASOPHILS % (AUTO) 1 % (0-10); EOSINOPHILS # (AUTO) 0.1 10^3/uL (0.0-0.3); EOSINOPHILS % (AUTO) 3 % (0-10); HEMATOCRIT 39 % (40-54); HEMOGLOBIN 13.9 g/dL (13.3-17.7); LYMPHOCYTES # (AUTO) 1.4 10^3/uL (1.0-4.0); LYMPHOCYTES % (AUTO) 26 % (12-44); MEAN CORPUSCULAR HEMOGLOBIN 32 pg (25-34); MEAN CORPUSCULAR HGB CONC 36 g/dL (32-36); MEAN CORPUSCULAR VOLUME 88 fL (80-99); MEAN PLATELET VOLUME 8.9 fL (9.0-12.2); MONOCYTES # (AUTO) 0.5 10^3/uL (0.0-1.0); MONOCYTES % (AUTO) 8 % (0-12); NEUTROPHILS # (AUTO) 3.4 10^3/uL (1.8-7.8); NEUTROPHILS % (AUTO) 62 % (42-75); PLATELET COUNT 208 10^3/uL (130-400); WHITE BLOOD COUNT 5.5 10^3/uL (4.3-11.0)
[2022-12-16 09:52] LABS: ALBUMIN 4.4 GM/DL (3.2-4.5); BILIRUBIN,TOTAL 0.7 MG/DL (0.1-1.0); CALCIUM 9.5 MG/DL (8.5-10.1); CREATININE SERUM 0.87 MG/DL (0.60-1.30); POTASSIUM 3.6 MMOL/L (3.6-5.0); TOTAL PROTEIN 6.9 GM/DL (6.4-8.2)
== END ==
LOC: LAB 09:01
PROVIDERS: ATTEND Family Medicine
DX: Z00.00 Encounter for general adult medical examination without abnormal findings (principal); I10 Essential (primary) hypertension; E78.2 Mixed hyperlipidemia; R73.9 Hyperglycemia, unspecified
CPT/HCPCS: 80053; 80061; 84443; 85025; G0103; 36415; 84153

== ENCOUNTER → 2023-06-17 | Outpatient (CLI) | payer OTHER ==
[~2023-06-17] MED LIST changes: -LOSA100T57 PO; +LOSA100T58 PO
[2023-06-17 08:08] LABS: BASOPHILS % (AUTO) 0 % (0-10); EOSINOPHILS # (AUTO) 0.2 10^3/uL (0.0-0.3); EOSINOPHILS % (AUTO) 2 % (0-10); HEMATOCRIT 40 % (40-54); HEMOGLOBIN 13.9 g/dL (13.3-17.7); LYMPHOCYTES # (AUTO) 1.7 10^3/uL (1.0-4.0); LYMPHOCYTES % (AUTO) 22 % (12-44); MEAN CORPUSCULAR HEMOGLOBIN 32 pg (25-34); MEAN CORPUSCULAR HGB CONC 35 g/dL (32-36); MEAN CORPUSCULAR VOLUME 91 fL (80-99); MEAN PLATELET VOLUME 8.9 fL (9.0-12.2); MONOCYTES # (AUTO) 0.6 10^3/uL (0.0-1.0); MONOCYTES % (AUTO) 8 % (0-12); NEUTROPHILS # (AUTO) 5.2 10^3/uL (1.8-7.8); NEUTROPHILS % (AUTO) 67 % (42-75); PLATELET COUNT 222 10^3/uL (130-400); WHITE BLOOD COUNT 7.7 10^3/uL (4.3-11.0)
[2023-06-17 08:20] LABS: ALBUMIN 4.4 GM/DL (3.2-4.5); POTASSIUM 3.8 MMOL/L (3.6-5.0)
[2023-06-17 08:21] LABS: CALCIUM 9.9 MG/DL (8.5-10.1)
[2023-06-17 08:22] LABS: TOTAL PROTEIN 7.4 GM/DL (6.4-8.2)
[2023-06-17 08:24] LABS: BILIRUBIN,TOTAL 0.6 MG/DL (0.1-1.0)
[2023-06-17 08:26] LABS: CREATININE SERUM 0.93 MG/DL (0.60-1.30)
== END ==
LOC: LAB 07:46
PROVIDERS: ATTEND Family Medicine
DX: Z00.00 Encounter for general adult medical examination without abnormal findings (principal); I10 Essential (primary) hypertension; R73.9 Hyperglycemia, unspecified; E78.2 Mixed hyperlipidemia
CPT/HCPCS: 80053; 80061; 84443; 85025; G0103; 36415; 84153